=== PATIENT | female | born 1935 | race Caucasian/White ===

== ENCOUNTER → 2016-08-10 10:19 | Outpatient (CLI) | payer MEDICARE, BC ==
[2014-12-05 09:45] VITALS: BMI 30.6
[~2016-08-10 10:19] MED LIST: ALENDRONATE SOD70 MG PO; ASPIRIN325 MG PO; CEFTIN500 MG PO; COZAAR50 MG PO; CYCLOBENZAPRINE10 MG PO; ESGIC TABLET1 TAB PO; FISH OIL 1,0001 CA1 PO; INDERAL LA80 MG PO; MELATONIN5 MG PO; NORVASC5 MG PO; OYST-CAL-5001 TAB PO; PRINIVIL20 MG PO; PROPRANOLOL HCL80 MG PO; PROTONIX40 MG PO; ZESTRIL20 MG PO; ZETIA10 MG PO; ZOCOR40 MG PO
== END | disposition home or self-care (01) ==
LOC: D.MAMMO 10:19
DX: Z12.31 Encounter for screening mammogram for malignant neoplasm of breast (principal)

== ENCOUNTER 2016-08-11 13:51 | Inpatient (IN) | payer MEDICARE, BC ==
[~2016-08-11] VITALS: Ht 162.6 cm; Wt 80.0 kg
--- NOTE | ~2016-08-11 | HEMODYNAMI ---
PATIENT:RICK CHAN MEDICAL RECORD: [id number] : 31 LOCATION:[facility] D.6 ADMISSION DATE: 08/11/16 Generatedon:08/12/201615:53 Patient name: RICK CHAN Patient #: [id number] SSN: D OB: 1935 Date of study: 08/12/2016 Page: Of Hemodynamic Procedure Report Patient Data Patient Demographics Procedure consent was obtained First Name: RICK Gender: Female Last Name: ROCIO : 1935 Middle Initial: M Age: 80 year(s) Patient #: [id number] Race: Unknown Additional ID: [id number] Contact details Address: [address] [place] [address] State: [place] City: [facility] Zip code: [address] Past Medical History Allergies Allergen Reaction Date Comments Reported Iodine 08/12/2016 Sulfa drugs 08/12/2016 Betadine 08/12/2016 Other allergy 08/12/2016 Adhesives, Doxycycline, Chlorhexidine, Hydrocodone Admission Admission Data Admission Date: 08/11/2016 Admission Time: 13:51 Room #: [id number].2116 Height (in.): 64 BSA: 1.85 (m2) Height (cm.): 162.56 BMI: 30.27 (kg/m2) Weight (lbs.): 176.37 Weight (kg.): 80 Lab Results Lab Result Date: 08/12/2016 Lab Result Time: 0:00 Biochemistry Name Units Result Min Max BUN mg/dl 18 --(---*)-- 7 18 Creatinine mg/dl 1.2 --(---*)-- 0.6 1.3 CBC Name Units Result Min Max Hemoglobin g/dl 14.1 --(*---)-- 13.5 17.5 Procedure Procedure Types Cath Procedure Diagnostic Procedure [facility] w/Coronaries PCI Procedure Coronary Stent Initial Miscellaneous Procedures Moderate Sedation up to 15 minutes Procedure Description Procedure Date Procedure Date: 08/12/2016 Procedure Start Time: 15:28 Procedure End Time: 15:51 Procedure Staff Name Function Reagan Mcneil RT Scrub Jakub Gamez RT Monitor Jovany Hickey MD Performing Physician Maryjo Torres RN Nurse Procedure Data Cath Procedure Fluoroscopy Diagnostic fluoroscopy Total fluoroscopy Time: 5.3 time: 5.3 min min Diagnostic fluoroscopy Total fluoroscopy dose: 611 dose: 611 mGy mGy Contrast Material Contrast Material Type Amount (ml) Isovue 300 83 Entry Location Entry Primary Successful Side Size Upsize Upsize Entry Closure Succes sful Closure Location (Fr) 1 (Fr) 2 (Fr) Remarks Device Remarks Femoral Right 5 Fr 6 Fr Exoseal artery Short Estimated blood loss: 10 ml Diagnostic catheters Device Type Used For End Catheter Placement Cordis 5Fr Pigtail Procedure Catheter (MP) Cordis 5Fr JL 4.0 Procedure Catheter (MP) Cordis 5Fr 3DRC Catheter Procedure (MP) Procedure Complications No complications Procedure Medications Medication Administration Route Dosage Heparin Flush Bag added to field 2 bags (1000units/500ml NS) Lidocaine 2% added to field 20 Oxygen NC 2 l/min Versed I.V. 1 mg Fentanyl I.V. 50 mcg Versed I.V. 1 mg Fentanyl I.V. 50 mcg Fentanyl I.V. 50 mcg Heparin Bolus I.V. 4000 units Plavix P.O. 75 mg Hemodynamics Rest BSA: 1.85 (m2) HGB: 14.1 (g/dl) O2 Consumption: Estimated: 166.56 (ml/min) O2 Co nsumption indexed: Estimated:90.03 (ml/min/m) Heart Rate: 71 (bpm) Pressure Samples Time Site Value (mmHg) Purpose Heart Use Rate(bpm) 15:30 AO 127/60(87) Snapshot 70 Snapshots Pre Cath Intra NCS Post Cath Vital Signs Time Heart Resp SPO2 etCO2 [id number] NIBP (mmHg) Rhythm Pain Sedation Rate (ipm) (%) (mmHg) (mmHg) Status Level (bpm) 15:06:39 69 21 97 0 0 Measuring NSR 0 (11) 10(A) , No pain 15:07:14 69 20 96 0 0 163/82(124) NSR 0 (11) 10(A) , No pain 15:11:38 69 19 94 0 0 155/74(114) NSR 0 (11) 10(A) , No pain 15:15:56 68 18 94 0 0 144/69(108) NSR 0 (11) 10(A) , No pain 15:20:18 69 17 97 0 0 131/66(98) NSR 0 (11) 10(A) , No pain 15:24:34 68 16 96 0 0 129/74(104) NSR 0 (11) 10(A) , No pain 15:28:50 70 15 96 0 0 142/70(105) NSR 0 (11) 9(A) , No pain 15:33:05 69 17 95 0 0 137/68(108) NSR 0 (11) 9(A) , No pain 15:37:21 70 16 96 0 0 139/70(98) NSR 0 (11) 9(A) , No pain 15:41:36 69 17 95 0 0 133/65(105) NSR 0 (11) 9(A) , No pain 15:45:53 73 17 96 0 0 145/75(116) NSR 0 (11) 10(A) , No pain 15:50:11 72 16 96 0 0 158/83(130) NSR 0 (11) 10(A) , No pain Medications Time Medication Route Dose Verified Delivered Reason Notes Effectiveness by by 15:06:37 Oxygen NC 2 Jovany Maryjo Per physician l/min Edelmira Torres RN 15:08:22 Heparin Flush added 2 Jovany Jovany used for Bag to bags Edelmira Hickey MD procedure (1000units/500ml field NS) 15:08:32 Lidocaine 2% added 20ml Jovany Jovany used for to vial Edelmira Hickey MD procedure field 15:25:41 Versed I.V. 1 mg Jovany Maryjo for sedation Edelmira Torres RN 15:25:48 Fentanyl I.V. 50 Jovany Maryjo for sedation mcg Edelmira Torres RN 15:27:48 Versed I.V. 1 mg Jovany Maryjo for sedation Edelmira Torres RN 15:27:56 Fentanyl I.V. 50 Jovany Maryjo for sedation mcg Edelmira Torres RN 15:30:01 Fentanyl I.V. 50 Jovany Maryjo for sedation mcg Edelmira Torres RN 15:34:24 Heparin Bolus I.V. 4000 Ojvany Maryjo for dose units Edelmira Torres RN anticoagulation verified [facility] dr hickey 15:46:10 Plavix P.O. 75 mg Jovany Sibley for Edelmira Torres RN antiplatelet therapy Procedure Log Time Note 14:35:19 Reagan Mcneil RT(R) (CV) sent for patient. Start room use. 14:42:29 Time tracking: Regular hours 14:42:34 Plan of Care:Hemodynamics will remain stable., Cardiac rhythm will remain stable., Comfort level will be maintained., Respiratory function will remain adequate., Patient/ family verbilizes understanding of procedure., Procedure tolerated without complication., Recovers from procedure without complications.. 14:44:12 Patient Height : 64 cm 14:44:18 Patient Weight : 176.37 kg 14:44:43 Lab Result : Hemoglobin 14.1 g/dl 14:44:43 Lab Result : Creatinine 1.2 mg/dl 14:44:43 Lab Result : BUN 18 mg/dl 14:44:53 H&P Date Dictated: 08/11/2016 Within 30 days and on chart.. 14:45:27 Is the patient allergic to Iodine/contrast media? Yes. 14:45:28 Was the patient premedicated? Yes 14:45:29 Is patient on blood thinner?Yes 14:45:32 ACC The patient was administered the following blood thiners within the last 24 hours: ACCPlavix 14:45:40 Lab results completed and on chart. 14:55:31 Patient received from PCU to CCL 1 Alert and oriented. Tansferred to table in Supine position. 14:55:32 Warm blankets applied, and alanna hugger turned on for patient comfort. 14:55:33 Correct patient and procedure confirmed by team. 14:55:34 ECG and BP/O2 sat monitors applied to patient. 14:55:34 Signed procedure consent form obtained from patient. 15:04:50 Vital chart was started 15:06:37 Oxygen 2 l/min NC was administered by Maryjo Torres RN; Per physician; 15:07:02 Baseline sample Acquired. 15:07:06 Rhythm: sinus rhythm 15:07:16 Full Disclosure recording started 15:07:18 Pre-op teaching completed and patient verbalized understanding. 15:07:18 Pre-procedure instructions explained to patient. 15:07:20 Family in waiting room. 15:07:21 Patient NPO since Midnight. 15:07:24 Patient diabetic? No. 15:07:26 Patient not . Patient is over age 55. 15:07:28 Previous problem with sedation/anesthesia? No ? 15:07:29 Snore? Yes 15:07:31 Sleep apnea? Yes 15:07:32 Deviated septum? No 15:07:33 Sticks out tongue? Yes 15:07:33 Opens mouth fully? Yes 15:07:35 Airway obstruction? No ? 15:07:37 Dentures? No ? 15:07:40 Pre procedure: right dorsailis pedis pulse 1+ Palpable, but thready & weak; easily obliterated 15:07:42 Patient pain scale 0/10 ?. 15:07:49 IV patent on arrival in left forearm with 0.9% NaCl at [facility]. 15:07:54 Right groin area was prepped with chlora-prep and draped in sterile fashion 15:07:56 Sharps counted by scrub and verified by R.N. 15:07:56 Alarms reviewed by R. N. 15:08:02 Use device set Femoral Dx 15:08:03 Tegaderm 4 x 4 opened to sterile field. 15:08:04 Acist Hand Control opened to sterile field. 15:08:05 Acist Manifold opened to sterile field. 15:08:06 Bag Decanter opened to sterile field. 15:08:06 Acist Syringe opened to sterile field. 15:08:07 St Rogelio 260cm J .035 wire opened to sterile field. 15:08:07 Terumo 5Fr Peak Sheath opened to sterile field. 15:08:07 Medline Cath Pack opened to sterile field. 15:08:09 Diagnostic Infinity 5Fr Multipack catheter opened to sterile field. 15:08:22 Heparin Flush Bag (1000units/500ml NS) 2 bags added to field was administered by Jovany Hickey MD; used for procedure; 15:08:32 Lidocaine 2% 20ml vial added to field was administered by Jovany Hickey MD; used for procedure; 15:15:13 Patient allergic to Iodine 15:15:25 Patient allergic to Sulfa drugs 15:15:30 Patient allergic to Betadine 15:16:23 Patient allergic to Other allergyAdhesives, Doxycycline, Chlorhexidine, Hydrocodone 15::43 Zero performed for pressure channel P1 15::33 Final Timeout: patient, procedure, and site verified with staff and physician. All members of the team are in agreement. ::33 --------ALL STOP TIME OUT------ 15::36 Right groin site verified by team. 15::38 Physical assessment completed. ASA score P 2 - A patient with mild systemic disease as per Jovany Hickey MD. 15:: Versed 1 mg I.V. was administered by Maryjo Torres RN; for sedation; :: Sedation plan: IV Moderate Sedation Versed, Fentanyl 15::48 Fentanyl 50 mcg I.V. was administered by Maryjo Torres RN; for sedation; ::48 Versed 1 mg I.V. was administered by Maryjo Torres RN; for sedation; 15::56 Fentanyl 50 mcg I.V. was administered by Maryjo Torres RN; for sedation; 15:28:18 Procedure started. 15:28:22 Local anesthetic to right femoral artery with Lidocaine 2% by Jovany Hickey MD.INITIAL ACCESS ONLY 15:29:03 A 5 Fr sheath was inserted into the Right Femoral artery 15:29:09 A Cordis 5Fr Pigtail Catheter (MP) was advanced over the wire and used for Procedure. 15:29:34 LV angiography performed. 15:29:37 LV gram done using LI 15::42 EF : 55 % 15::45 Injector settings: Ml/sec: 10, Volume: 20, 15:29:47 Catheter removed. 15:29:52 A Cordis 5Fr JL 4.0 Catheter (MP) was advanced over the wire and used for Procedure. 15:30:01 Fentanyl 50 mcg I.V. was administered by Maryjo Torres RN; for sedation; 15:30:29 LCA angiography performed. 15:31:12 Catheter removed. 15:31:17 A Cordis 5Fr 3DRC Catheter (MP) was advanced over the wire and used for Procedure. 15:32:16 RCA angiography performed. 15:32:17 Catheter removed. 15:32:51 Smart Surgical BasixCompak Inflation Kit opened to sterile field. 15:32:51 Reilly Whisper J 300cm 0.014 guide wire opened to sterile field. 15:32:51 Terumo 6Fr Peak Sheath opened to sterile field. 15:32:52 Medtronic Launcher 6Fr HS I guide catheter opened to sterile field. 15:34:21 Sheath upsized to a 6 Fr Short. 15:34:24 Heparin Bolus 4000 units I.V. was administered by Maryjo Torres RN; for anticoagulation; dose verified wtih dr hickey 15:34:36 ACC PCI Site: pRCA has 75% stenosis. 15:35:42 6 Fr HS 1 guide catheter was inserted over the wire 15:35:55 Whisper wire advanced. 15:36:28 Wire advanced across lesion. 15:37:10 The Biofreedom 3.5 x 28 stent (No Cost Implant) was advanced then removed because of failure to cross lesion 15:38:25 Wire removed. 15:38:36 Grannis [employer] Choice PT Extra Support J 300cm .014 gu opened to sterile field. 15:39:02 Choice PT XS wire advanced. 15:39:06 Wire advanced across lesion. 15:39:08 Inflation number: 1 A Grannis Sci Carlisle 3.5 X 20 balloon was prepped and advanced across the Prox RCA, then inflated to 13 MAUREEN for 0:10 (min:sec). 15:39:46 Multiple inflations made at 13 Atms. 15:40:53 Balloon removed over the wire. 15:41:45 Inflation Number: 2 A Biofreedom 3.5 x 28 stent (No Cost Implant) was prepped and advanced across the Prox RCA. The stent was deployed at 13 MAUREEN for 0:10 (min:sec). 15:42:16 Inflation number: 3 The stent balloon was then re-inflated across the Prox RCA to 17 MAUREEN for 0:10 (min:sec). 15:42:41 ACC Post-intervention CHUCK Flow is 3. 15:42:42 Stent catheter was removed intact over wire. 15:42:43 Guide catheter removed. 15:42:43 Wire removed. 15:42:50 Cordis 6Fr Exoseal opened to sterile field. 15:43:24 Sheath removed intact; hemostasis achieved with Exoseal to the Right Femoral artery. 15:43:28 Procedure ended.(Physican Out) 15:43:57 Fluoroscopy time 05.30 minutes. 15:44:01 Fluoroscopy dose: 611 mGy 15:44:01 Flurop Dose total: 611 15:44:06 Contrast amount:Isovue 300 83ml. 15:44:07 Sharps counted by scrub and verified by R.N. 15:44:09 Insertion/operative site no bleeding no hematoma. 15:44:11 Post-op/insertion site Right Femoral artery dressed using a 4 x 4 and Tegaderm. 15:44:13 Post Procedure Pulses reassessed and unchanged 15:44:22 Post-procedure physical assessment completed. ASA score P 2 - A patient with mild systemic disease as per Jovany Hickey MD. 15:44:25 Post procedure rhythm: unchanged. 15:44:28 Estimated blood loss: 10 ml 15:44:31 Post procedure instruction explained to patient.Patient verbalizes understanding. 15:44:32 Patient needs reinforcement of post procedure teaching. 15:45:01 Procedure type changed to Cath procedure, Diagnostic procedure, LHC, LHC w/Coronaries, PCI procedure, Coronary Stent Initial, Miscellaneous Procedures, Moderate Sedation up to 15 minutes 15:45:08 Procedure Complication : No complications 15:45:41 IV Extension Set opened to sterile field. 15:46:02 Procedure and supply charges have been captured, reviewed, submitted and are correct. 15:46:10 Plavix 75 mg P.O. was administered by Maryjo Torres RN; for antiplatelet therapy; 15:51:02 See physician's report for complete and final results. 15:51:02 Vital chart was stopped 15:51:05 Report given to PCU. 15:51:07 Patient transfered to PCU with Bed. 15:51:09 Full Disclosure recording stopped 15:51:09 Procedure ended. 15:51:14 End room use (Document Last) Intervention Summary Intervention Notes Time ActionType Lesion and Equipment Action# Pressure Duration Attributes Used 15:37:10 Discard Biofreedom Stent 3.5 x 28 stent (No Cost Implant) 15:39:08 Inflate Prox RCA Grannis Sci 1 13 00:10 balloon Carlisle 3.5 X 20 balloon 15:41:[address] stent Prox RCA Biofreedom 2 13 00:10 3.5 x 28 stent (No Cost Implant) 15:42:16 Reinflate Prox RCA Biofreedom 3 17 00:10 stent 3.5 x 28 balloon stent (No Cost Implant) Device Usage Item Name Manufacture Quantity Catalog Number Hospital Part Current Mini [facility] Lot# / Charge Number Stock Stock Serial# Code Tegaderm 4 3M 1 [id number] [id number] 5 x 4 Acist Hand Acist 1 30823 168085 725435 632366 5 Control Medical Systems Inc Acist Acist 1 37856 279939 516581 777556 5 Manifold Medical Systems Inc Acist Acist 1 08342 692777 751607 985753 20 Syringe Medical Systems Inc Bag Microtek 1 2002S 0875062 97110 610336 5 Drinks4-you Inc. Medline Cardinal 1 [id number] 475682 99935 117569 5 Cath Pack Health Terumo 5Fr Terumo 1 [id number] 882060 462074 914116 [address] Rogel[address] St Rogelio 1 166038 670967 154720 929876 30 260cm J .035 wire Diagnostic Cardinal 1 [id number] 705450 09584 869253 30 Infinity Health 5Fr Multipack catheter Cordis 5Fr Cardinal 1 [id number] 5 Pigtail Health Catheter (MP) Cordis 5Fr Cardinal 1 357019 5 JL 4.0 Health Catheter (MP) Cordis 5Fr Cardinal 1 722251 5 3DRC Health Catheter (MP) Terumo 6Fr Terumo 1 [id number] 659715 988121 985321 40 Peak Sheath Reilly Reilly 1 [id number] 930463 415639 020776 5 Whisper J Vascular 300cm 0.014 guide wire Merit Merit 1 [id number] 547802 010904 841146 15 BasixCompak Medical Inflation Kit Medtronic Medtronic 1 [id number] 240171 39934 649680 1 Launcher 6Fr HS I guide catheter Biofreedom Biosensors 1 [id number] 553481 294297 5 [id number] 3.5 x 28 [place] SA stent (No Cost Implant) Grannis Sci Grannis 1 [id number] 24080331 529006 5 Choice PT Scientific Extra Support J 300cm .014 gu Grannis Sci Grannis 1 [id number] 039719 888344 989158 1 [id number] Answer[employer].com 3.5 X 20 balloon Cordis 6Fr Cardinal 1 EX600 365192 781880 760185 10 [facility] [address]-96 850248 26957 905523 5 Extension Set Signature Audit [place] Stage Time Signature Unsigned Intra-Procedure 08/12/2016 Jakub Gamez RT(R) 3:51:25 PM RT(R) 08/12/2016 3:52:44 PM Intra-Procedure 08/12/2016 Jakub Gamez 3:53:30 PM RT(R) Signatures Monitor : Jakub Gamez RT Signature : Date : Time : [address] [address]
[~2016-08-11 13:51] MED LIST changes: -COZAAR50 MG PO; -FISH OIL 1,0001 CA1 PO; -MELATONIN5 MG PO; -OYST-CAL-5001 TAB PO; -PROTONIX40 MG PO
--- NOTE | 2016-08-11 14:16 | NUR ---
TRANSFER FROM ADMISSIONS BY W/C. OREINTED ROOM. CALL LIGHT IN REACH. WILL CONT. PLAN OF CARE.
[2016-08-11] MEDS ORDERED: ALENDRONATE SOD70 MG PO (14:32)
[2016-08-11 14:33] LABS: BASOPHILS 0.5 % (0-2); EOSINOPHILS 1.5 % (0-7); HEMATOCRIT 43.1 % (36.0-48.0); HEMOGLOBIN 14.1 g/dL (12-16); IMMATURE GRANULOCYTES 0.2 % (0-5); LYMPHOCYTES 16.1 % (15-50); MCH 31.3 pg (26.0-34.0); MCHC 32.7 g/dL (31.0-37.0); MCV 95.8 fL (80.0-100.0); MEAN PLATELET VOLUME 9.5 fL (7.4-10.4); NEUTROPHILS 67.7 % (40-80); WBC 6.7 10x3/uL (4.8-10.8)
[2016-08-11] MEDS ORDERED: PROPRANOLOL HCL80 MG PO (14:33)
[2016-08-11 14:35] LABS: PLATELET COUNT 258 10x3/uL (130-400)
[2016-08-11] MEDS ORDERED: PROTONIX40 MG PO (14:35)
[2016-08-11] MEDS ORDERED: COZAAR50 MG PO (14:37)
[2016-08-11] MEDS ORDERED: MELATONIN5 MG PO (14:41)
[2016-08-11] MEDS ORDERED: FISH OIL 1,0001 CA1 PO (14:42)
[2016-08-11] MEDS ORDERED: OYST-CAL-5001 TAB PO (14:42)
[2016-08-11 14:46] VITALS: BP 182/77; Ht 162.6 cm; Wt 80.0 kg
[2016-08-11 15:20] LABS: ALBUMIN 4.2 g/dL (3.4-5.0); ALKALINE PHOSPHATASE 83 U/L (46-116); ALT (SGPT) 26 U/L (10-68); CALC OSMOLALITY 284 mosm/kg (275-300); CARBON DIOXIDE 30.6 mmol/L (21.0-32.0); CHLORIDE - SERUM 105 mmol/L (98-107); CKMB 1.1 U/L (0.0-3.6); CREATINE KINASE 53 UL (21-215); CREATININE - SERUM 1.2 mg/dL (0.6-1.3); GLUCOSE 102 mg/dL (74-106); POTASSIUM - SERUM 4.5 mmol/L (3.5-5.1); PROTEIN - SERUM 7.1 g/dL (6.4-8.2); SODIUM 142 mmol/L (136-145); TROPONIN-I < 0.017 ng/mL (0.000-0.060); UREA NITROGEN 18 mg/dL (7-18); eGFR NON AFRICAN AMERICAN 45 mL/min (90-120)
--- NOTE | 2016-08-11 15:30 | NUR ---
IV STARTED TO LFA WITH 22 GAUGE CATH AND FLUSHED WITH NS. LINE IS PATENT.
--- NOTE | 2016-08-11 16:12 | NUR ---
EKG COMPLETED. CONSENTS SIGNED FOR [facility]. WILL CONT. PLAN OF CARE.
--- NOTE | 2016-08-11 20:12 | NUR ---
RESUMED CARE OF PT, LYING IN BED RESPIRATIONS EVEN AND UNLABORED ON ROOM AIR. 66 SR ON TELEMETRY. LEFT FOREARM SALINE LOCKED. NO NEEDS VOICED AT THIS TIME. CALL LIGHT IN REACH. WILL CONTINUE TO MONITOR.
[2016-08-11 20:24] VITALS: BP 130/67
[2016-08-11 22:36] LABS: CKMB 0.8 U/L (0.0-3.6); CREATINE KINASE 47 UL (21-215)
[2016-08-11 22:38] LABS: TROPONIN-I < 0.017 ng/mL (0.000-0.060)
[2016-08-12 01:28] VITALS: BP 141/62
[2016-08-12 04:34] VITALS: BP 164/80
[2016-08-12 07:15] LABS: CKMB 0.7 U/L (0.0-3.6); CREATINE KINASE 50 UL (21-215); TROPONIN-I < 0.017 ng/mL (0.000-0.060)
[2016-08-12 08:00] VITALS: BP 140/71
[2016-08-12 12:00] VITALS: BP 143/69
--- NOTE | 2016-08-12 14:45 | NUR ---
PRE-OPS GIVEN. TO AUTOMOTIVE SERVICE ADVISOR BY BED.
--- NOTE | 2016-08-12 16:09 | NUR ---
BACK FROM ENTERPRISE [employer] ARCHITECT. VS WNL. RIGHT GROIN STABLE WITHOUT BLEEDING OR HEMATOMA NOTED.
--- NOTE | 2016-08-12 17:36 | NUR ---
Patient returned from cardiac cath at 1600. CM will visit when patient is more alert regarding discharge planning needs.
[2016-08-12 19:41] VITALS: BP 96/54
--- NOTE | 2016-08-12 19:47 | NUR ---
INITIAL ASSESSMENT COMPLETED, VSS, AFEBRILE. LEFT FOREARM SL'ED. RIGHT GROIN CDI, NO BLEEDING OR HEMATOMA NOTED. ATTEMPTED TO GIVE PT DISCHARGE INSTRUCTIONS, PT STATES "DR CUNHA TOLD ME I COULD STAY THE NIGHT". CALL TO DR CUNHA AT THIS TIME, RETURNS CALL. STATES THE PT MAY STAY TONIGHT. PT AND HER SPOUSE UPDATED ON POC.
--- NOTE | 2016-08-12 23:44 | NUR ---
PT RESTING WELL WITHOUT C/O OR DISTRESS NOTED. NO CHANGES NOTED IN ASSESSMENT. CALL LIGHT WITHIN REACH. WILL CONT TO MONITOR.
[2016-08-13 00:59] VITALS: BP 116/54
--- NOTE | 2016-08-13 07:19 | NUR ---
ASSESSMENT COMPLETED. LEFT HAND SL . TELEMERTY SHOWS SR. RIGHT GROIN SOFT WITH DRSG DRY AND INTACT. TO BE DISCHARGED TODAY
[2016-08-13 08:40] VITALS: BP 118/85
[2016-08-13 08:56] VITALS: BP 118/85
--- NOTE | 2016-08-13 09:20 | HP ---
PATIENT: RICK CHAN MEDICAL RECORD: [id number] ACCOUNT: [id number] LOCATION:[address] : 31 ADMISSION DATE: 08/11/16 HISTORY AND PHYSICAL EXAMINATION DATE OF ADMISSION: 08/11/2016 CHIEF COMPLAINT: Substernal chest pain. HISTORY OF PRESENT ILLNESS: The patient is an 80-year-old female who states that over the past week, she has had cough. She has had congestion. She did see Dr. Aquino last week with cough and congestion and has improved, but she has had some tightness in her chest. The patient states that anytime she is ambulating on even ground or any incline she develops tightness in her chest. She has had no nausea, no vomiting, but also states that this occasionally occurs at rest. The patient has had a history of having 2 prior stents placed. She had one in 2005 and [place] [address] Alcaraz. PAST MEDICAL AND SURGICAL HISTORY: She has had a history of hypertension and hyperlipidemia. She had hysterectomy and cholecystectomy. She has had a cardiac perfusion tamponade times 2. She has had a hysterectomy, history of varicose veins. MEDICATIONS: Include alendronate 70 mg once a day, aspirin 325 mg one p.o. daily, fish oil 2000 mg once a day, losartan 100 mg daily, Os-Yoav 500 mg plus vitamin D3 500 mg 1 tablet twice daily, Protonix 40 mg once a day, propranolol 80 mg b.i.d., simvastatin 40 mg once a day and Zetia 10 mg once a day. ALLERGIES: BETADINE, CHLORHEXIDINE, DOXYCYCLINE, HYDROCODONE AND IODINE. FAMILY HISTORY: Father of malignant lung cancer as well as ulcer. Mother had hypertension, also had esophageal cancer. Brother has had an open heart surgery. SOCIAL HISTORY: The patient has not been a smoker and not a drinker. 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 She is currently . REVIEW OF SYSTEMS: CONSTITUTIONAL: She denies any headaches, seizures, or syncope. Denies change in visual or auditory acuity. PULMONARY: She denies any shortness of breath. CARDIOVASCULAR: The patient has reported having problems with substernal chest pain, tightness in her chest. She has had no tachycardia. GASTROINTESTINAL: No chronic nausea, vomiting, melena or hematochezia. GENITOURINARY: No urgency, frequency, or dysuria. PHYSICAL EXAMINATION: VITAL SIGNS: Her blood pressure was elevated at 180/86, her pulse is 60, respirations 14 and temperature is 98. GENERAL: She is alert. She is oriented times 3. She is accompanied by her . HEENT: Unremarkable. NECK: Supple. There is no adenopathy. No thyromegaly. HEART: Has a regular rate and rhythm without murmurs, gallops or rubs. LUNGS: Clear. HISTORY AND PHYSICAL [id number] RICK CHAN ABDOMEN: Soft, bowel sounds are positive. EXTREMITIES: Lower extremities had no edema. She does have some anterior chest wall tenderness, but states that this is not the type of pain she has been experiencing. LABORATORY DATA: She had an EKG showing sinus rhythm, rate is approximately 78. No ST-T wave changes. ASSESSMENT: Substernal chest pain, prior history of cardiac stenting times 2, hyperlipidemia and hypertension. PLAN: It is felt the patient should be admitted. Cardiology consultation will be obtained for possible cardiac catheterization. TRANSINT:[id number] Voice Confirmation ID: [id number] DOCUMENT ID: [id number] EMANUEL VERDE MD at 0920 CC: [id number] DICTATION DATE: 08/11/16 1327 POST OFFICE MANAGER: 08/11/16 1513 ADM IN [place] [id number] [place] [address]
--- NOTE | 2016-08-13 10:16 | NUR ---
PT DISCHARGED. IV DCD WITH TIP INTACT. RX FOR PLAVIX GIVEN TO PT. TO PRIVATE CAR PER WHEELCHAIR
--- NOTE | 2016-08-15 10:11 | CN ---
PATIENT NAME:RICK CHAN MEDICAL RECORD: [id number] : 31 LOCATION:[facility] D.2116 ADMIT DATE: 08/11/16 ACCOUNT: [id number] CONSULTING PHYSICIAN: NAVIN CUNHA MD REFERRING PHYSICIAN: EMANUEL VERDE MD DATE OF CONSULTATION: 08/11/2016 Cardiology Consultation ADMITTING DIAGNOSES: 1. Angina. 2. Coronary artery disease. 3. Previous percutaneous transluminal coronary angioplasty stent 2 vessels in 2006. 4. Hypertension. 5. Hyperlipidemia. HISTORY OF PRESENT ILLNESS: Mrs. Chan has not had cardiac intervention greater than 10 years. She presents with increasing anginal symptomatology just like that of her old angina, chest pressure that has been coming on her with any minimal exertion, now she is having episodes of rest pain. Her EKG is with no acute ST-T abnormalities. PHYSICAL EXAMINATION: GENERAL APPEARANCE: Well-nourished, well-developed, appears stated age. Level of distress, comfortable. PSYCHIATRIC: Mental status, alert, normal affect. Orientation, oriented to time, place and person. EYES: Lids and conjunctiva, noninjected. No discharge, no pallor. ENT: Lips, teeth, gums, normal dentition. Oropharynx, no cyanosis, no pallor. NECK: Carotid arteries, bilateral normal upstroke, no bruits, no thrills. JUGULAR VEINS: No jugular venous pressure or distention. CERVICAL LYMPH NODES: Nontender, nonenlarged. THYROID: Not enlarged. Nontender. No nodules. LUNGS: Respiratory effort, unlabored. CHEST: Normal curvature. No thoracic deformity. No chest wall tenderness. Percussion, resonant. Auscultation, clear. No wheezes, no rales, no rhonchi. CARDIOVASCULAR: Precordial exam, nondisplaced. No heaves or pericardial thrills. Rate and rhythm, regular. Heart sounds, normal S1, normal S2. No S3, no gallop, no rub. Systolic murmur, not heard. Diastolic murmur, not heard. EXTREMITIES: No cyanosis, no edema. Peripheral pulses, full and equal in all extremities, except as noted. No bruits appreciated. ABDOMEN: Soft, nondistended. Normal aorta. No bruit. Nontender. No masses. Liver, nontender, no hepatomegaly. Spleen, nontender, no splenomegaly. MUSCULOSKELETAL: No joint tenderness. No joint swelling. No erythema. NEUROLOGICAL: Normal gait, normal strength, normal tone. SKIN: Warm and dry. REVIEW OF SYSTEMS: The patient reports easy bruising but reports no swollen glands. The patient reports no fever, no night sweats, no significant weight gain, no significant weight loss. No significant exercise tolerance. The patient reports no dry eyes, no irritation, no vision change. Patient reports no difficulty hearing and no ear pain. Patient reports no frequent nose bleeds or nose and sinus problems. Patient reports on arm pain on exertion. No shortness of breath while lying down. No history of heart murmur. Patient CONSULT REPORT [id number] RICK CHAN reports no cough, no wheezing or coughing up blood. Patient reports no abdominal pain, no vomiting. Normal appetite. No diarrhea and not vomiting blood. No nausea and no constipation. Patient reports no incontinence. No difficulty urinating. No hematuria. No increased frequency. Patient reports no muscle aches. No weakness, no arthralgias, no back pain. No swelling of the extremities. Patient reports no abnormal mole, no jaundice, no rashes. Reports no loss of consciousness. No weakness and no numbness. No seizures, dizziness, or headaches. The patient reports no depression, no sleep disturbance, feeling safe in a relationship and no alcohol abuse. Patient reports on fatigue. Reports no runny nose or sinus pressure. No itching, no hives, and no frequent sneezing. OVERALL IMPRESSION: Accelerated angina in an unstable fashion. We will proceed with coronary angiography. Further care depends upon findings of the angiography. TRANSINT:[id number] Voice Confirmation ID: [id number] DOCUMENT ID: [id number] NAVIN CUNHA MD at 1011 CC: [id number] DICTATION DATE: 08/11/16 1507 INSURANCE EXAMINING CLERK: 08/12/16 0209 DIS IN 08/13/16 [place] [id number] [place] [id number]
--- NOTE | 2016-08-15 10:11 | OP ---
PATIENT NAME: RICK CHAN MEDICAL RECORD: [id number] :31 LOCATION:D.M2 D.2116 ADMISSION DATE:08/11/16 SURGEON: NAVIN CUNHA MD DATE OF OPERATION: 08/12/2016 PROCEDURES: 1. PTCA stent RCA. 2. Left heart catheterization. 3. Selective coronary angiography. 4. Left ventriculogram. INDICATION: Unstable angina. PROCEDURE IN DETAIL: After informed consent was obtained and after detailed explanation of risks, benefits as well as alternative therapies, the patient elected to proceed with angiogram and angioplasty. The right femoral area was prepped and draped in normal sterile fashion. The right femoral artery was cannulated via modified Seldinger technique with placement of 6-Irish sheath. All catheters exchanged through this sheath. FINDINGS: The left ventriculogram was performed in the standard 30-degree LI view reveals good cardiac wall motion throughout all segments. Overall ejection fraction is 60%. SELECTIVE CORONARY ANGIOGRAPHY: 1. Left main showed no significant angiographic disease. 2. Left anterior descending has a previously placed stent. This is widely patent with no significant restenosis. No disease elsewise throughout the LAD or its branches. 3. Left circumflex has moderate irregularities, but no flow-limiting stenosis. 4. Right coronary has 75% stenosis proximally. There is a previously placed stent in the mid distal vessel. This is widely patent. No disease elsewhere throughout the RCA or its branches. PTCA STENT OF THE RCA: The stent used was a 3.0 x 28 mm Bio[employer] taken to 17 atmospheres. This was a 25-mm lesion and a 3.5 vessel, CHUCK 3 flow before and after the intervention. Result was 0% residual stenosis after the intervention. OVERALL IMPRESSION: Successful percutaneous transluminal coronary angioplasty stent of the right coronary artery going from 75% initial stenosis to 0% residual. TRANSINT:[id number] Voice Confirmation ID: [id number] DOCUMENT ID: [id number] NAVIN CUNHA MD at 1011 CC: [id number] DICTATION DATE: 08/12/16 1545 MARINA DRY DOCK MANAGER: 08/13/16 0058 DIS IN 08/13/16 [place] [address]
--- NOTE | 2016-08-15 10:11 | DS ---
PATIENT:RICK CHAN :31 MEDICAL RECORD: [id number] DISCHARGE SUMMARY ADMISSION DATE: 08/11/16 DISCHARGE DATE: 08/13/16 DATE OF SERVICE: 08/12/2016 DIAGNOSES: 1. Angina. 2. Coronary artery disease. 3. Percutaneous transluminal coronary angioplasty stent right coronary artery this admission. 4. Hypertension. 5. Hyperlipidemia. HOSPITAL COURSE: Mrs. Chan presents with unstable anginal symptomatology, underwent cardiac catheterization revealing single vessel disease to the RCA, underwent successful PTCA stent of the RCA, was discharged home with the addition of aspirin and Plavix to her medical regimen. She will follow up with [facility] in 1 month. TRANSINT:[id number] Voice Confirmation ID: [id number] DOCUMENT ID: [id number] NAVIN CUNHA MD at 1011 CC: [id number] DICTATION DATE: 08/12/16 161 CARDIOPULMONARY TECHNICIAN: 08/13/16 1102 DIS IN 08/13/16 [place] [id number] [place] [address]
== END 2016-08-13 10:19 | disposition home or self-care (01) | DRG 247 ==
LOC: D.SDCHOLD 13:51 → D.M2 13:51
PROVIDERS: Internal Medicine Interventional Cardiology; ADMIT Family Medicine
PROC: B2111ZZ Fluoroscopy of Multiple Coronary Arteries using Low Osmolar Contrast (ICD-10-PCS; 2016-08-12)
PROC: B2151ZZ Fluoroscopy of Left Heart using Low Osmolar Contrast (ICD-10-PCS; 2016-08-12)
PROC: 027034Z Dilation of Coronary Artery, One Artery with Drug-eluting Intraluminal Device, Percutaneous Approach (ICD-10-PCS; principal; 2016-08-12 11:45)
PROC: 4A023N7 Measurement of Cardiac Sampling and Pressure, Left Heart, Percutaneous Approach (ICD-10-PCS; 2016-08-12 11:45)
DX: I25.110 Atherosclerotic heart disease of native coronary artery with unstable angina pectoris (principal); Z95.5 Presence of coronary angioplasty implant and graft; I10 Essential (primary) hypertension; E78.5 Hyperlipidemia, unspecified; Z00.6 Encounter for examination for normal comparison and control in clinical research program

== ENCOUNTER 2017-08-21 08:00 | Outpatient (CLI) | payer MEDICARE, BC ==
[2017-07-22 10:58] VITALS: BMI 31.6
[~2017-08-21 08:00] MED LIST changes: +BAYER CHEWABLE81 MG PO; +COZAAR50 MG PO; +FISH OIL 1,0001 CA1 PO; +MELATONIN5 MG PO; +OYST-CAL-5001 TAB PO; +PLAVIX75 MG PO; +PROTONIX40 MG PO
== END 2017-08-21 09:00 | disposition home or self-care (01) ==
LOC: D.MAMMO 08:00
DX: Z12.31 Encounter for screening mammogram for malignant neoplasm of breast (principal)

== ENCOUNTER 2017-10-04 07:11 | Inpatient (IN) | payer MEDICARE, BC ==
[~2017-10-04] VITALS: Ht 162.6 cm; Wt 81.8 kg
[2017-10-04] VITALS (7 sets, daily range): BP systolic 121–193; BP diastolic 42–105; Ht 162.6 cm; Wt 81.8 kg
--- NOTE | ~2017-10-04 | HP ---
PATIENT: RICK CHAN MEDICAL RECORD: [id number] ACCOUNT: [id number] LOCATION:D.MS [facility] : 31 ADMISSION DATE: 10/04/17 HISTORY AND PHYSICAL EXAMINATION DATE OF ADMISSION: 10/04/2017 CHIEF COMPLAINT: Right hip pain. HISTORY OF PRESENT ILLNESS: The patient is an 82-year-old female who had gone out to get her paper this morning. She was starting back in her house, going two steps, fell, complained of having pain in the right hip, presented to the Emergency Room where she was found to have a right intertrochanteric fracture. PAST MEDICAL AND SURGICAL HISTORY: Significant that she has had history of hypothyroidism, hyperlipidemia. She has had hypokalemia, history of anemia, benign hypertension. She has had arteriosclerotic heart disease with bypass grafting. She has had coronary stents placed as well. She had gastroesophageal reflux, postmenopausal syndrome, osteoporosis. She has had a cholecystectomy. She had a right shoulder replacement as well as a hysterectomy. She has had bladder surgery, history of pleural effusions, history of seizure disorder, DJD of the left hip. She has had an MD in the past. ALLERGIES: BETADINE, CHLORHEXIDINE, DOXYCYCLINE, HYDROCODONE AND IODINE. MEDICATIONS: Include aspirin 81 mg once a day, Plavix 75 mg once a day, Zetia 10 mg once a day, losartan 100 mg a day, nabumetone 500 mg p.o. b.i.d., vitamin D3 1000 international units daily, Protonix 40 mg daily, propranolol 80 mg b.i.d., simvastatin 40 mg daily. FAMILY HISTORY: Father of heart disease. Mother had hypertension. Mother had esophageal cancer. SOCIAL HISTORY: The patient is . She is educated through the 12th grade. She is a retired receptionist secretary. She denies any ethanol or tobacco use or abuse. SOCIAL HISTORY: She was born in [place], [place]. She lives here with her in [place]. REVIEW OF SYSTEMS: GENERAL: She denies any headaches, seizure or syncope. She denies change in visual or auditory acuity. PULMONARY: She denies any shortness of breath, cough or congestion, history of TB, asthma, or bronchitis. CARDIOVASCULAR: She is having no chest pain, palpitation, PND, or orthopnea. GASTROINTESTINAL: No chronic nausea, vomiting, melena, or hematochezia. GENITOURINARY: No urinary frequency or dysuria. PHYSICAL EXAMINATION: VITAL SIGNS: The patient currently is afebrile. Her pulse is 75, respirations 18, her blood pressure 130/48, her O2 sat is 95% on room air. HEENT: Head is normocephalic. No lesions. Ears: TMs clear. Eyes: Pupils equal, round, reactive to light. Her extraocular movements are intact. Her nasal cavity, oral cavity, and oropharynx is clear. HISTORY AND PHYSICAL [id number] ROCIORICK M NECK: Supple. There is no adenopathy. HEART: Has a regular rate and rhythm without any murmurs, gallops or rubs. LUNGS: Clear. ABDOMEN: Soft, bowel sounds are positive. The patient does have pain in the right hip area. She has shortening with external rotation. IMAGING: She had x-ray of the hip showing acute displaced comminuted angulated intertrochanteric fracture. She had a pelvis fracture showing the same. Chest x-ray showed no cardiomegaly, no active infiltrates. She had a knee x-ray, knee x-ray was unremarkable. She had an EKG, EKG showed a normal sinus rhythm, her rate is 60. LABORATORY DATA: She had a white count of 9.2, hemoglobin 12.6, hematocrit 37.5, her platelets are 191. Sodium 142, potassium 4.3, chloride is 106, CO2 is 26.5. Her BUN is 27, creatinine is 1.1. Blood sugar is 122. INR is 1.09. ASSESSMENT: 1. Status post fall with right intertrochanteric fracture. 2. History of arteriosclerotic heart disease without any evidence of cardiac ischemia at the present time. 3. Hyperlipidemia. 4. Hypertension. 5. Osteoporosis. 6. Gastroesophageal reflux. PLAN: The patient is admitted. Orthopedic consultation will be obtained for open reduction internal fixation of the right hip. The patient will be started on morphine for pain control. Repeat CBC and BMP in a.m. TRANSINT:[id number] Voice Confirmation ID: [id number] DOCUMENT ID: [id number] EMANUEL VERDE MD at 0721 CC: [id number] DICTATION DATE: 10/04/171809 TECHNOLOGY ADOPTION MANAGER: 10/04/171917 ADM IN [facility] [address] [place] [address]
--- NOTE | ~2017-10-04 | DS ---
PATIENT:RICK CHNA :31 MEDICAL RECORD: [id number] DISCHARGE SUMMARY ADMISSION DATE: 10/04/17 DISCHARGE DATE: 10/09/17 DATE OF ADMISSION: 10/04/2017 DATE OF DISCHARGE: 10/09/2017 CONDITION ON DISCHARGE: Improved. ADMITTING DIAGNOSES: Status post fall with right intertrochanteric fracture, history of arteriosclerotic heart disease without evidence of ischemia at the present time, hyperlipidemia, hypertension, osteoporosis, gastroesophageal reflux. DISCHARGE DIAGNOSES: Displaced intertrochanteric fracture of the right hip, status post fall, hypothyroidism, hyperlipidemia, hypertension, history of arteriosclerotic heart disease, gastroesophageal reflux. HOSPITAL COURSE: This patient is an 82-year-old female who had gone out to get the paper on the morning of her admission. She had started back to her house when she started to have 2 steps, fell, complaining of having pain in her right hip. She presented to the Emergency Room where she was found to have a right intertrochanteric fracture. PHYSICAL EXAMINATION: VITAL SIGNS: She is currently afebrile. Vital signs are stable. Pulse 75, respirations 18, blood pressure 130/48, O2 saturation was 95% on room air. GENERAL: She was alert. She is oriented times 3. HEENT: Unremarkable. NECK: Supple. There is no adenopathy. HEART: Had a regular rate and rhythm without murmurs, gallops or rubs. LUNGS: Clear. LOWER EXTREMITIES: The patient did have shortening with external rotation of the right lower leg. X-ray of the hip showed an acute comminuted, angulated intertrochanteric fracture of the pelvic. She had a pelvic x-ray showing the same. LABORATORY DATA: Chest x-ray showed no cardiomegaly, no active infiltrates. She had a right knee x-ray, was unremarkable. EKG showed sinus rhythm, rate of 60. White count is 9.2, hemoglobin 12.6, hematocrit was 37.5, platelets 192. Sodium 142, potassium 4.3, chloride 106, CO2 is 26.5, BUN is 27, creatinine 1.1, blood sugar of 122. INR is 1.09. The patient was admitted. Orthopedic consultation was obtained for open reduction internal fixation. She was seen in consultation by Dr. Kenneth Raygoza. The patient was taken to the operating room on 10/05/2017 where she underwent a right comminuted intertrochanteric fracture femoral long nailing and cross locking. The patient tolerated the procedure well. She was started on orthopedic pathways, slowly began to ambulate. She had no complications postop. The patient was therefore referred for inpatient rehabilitation. She was discharged on the to inpatient rehabilitation. DISCHARGE MEDICATIONS: Include Zetia 10 mg p.o. bedtime, Zocor 40 mg p.o. every day, Inderal LA 80 mg p.o. b.i.d., Protonix 40 mg p.o. every day, Cozaar 100 mg once a day, melatonin 5 mg p.o. at bedtime p.r.n. insomnia, calcium 500 mg p.o. DISCHARGE SUMMARY REPORT [id number] RICK CHAN daily. DISCHARGE INSTRUCTIONS: The patient will continue all current medications. She will follow up with me in approximately 7-10 days after her discharge from rehab. TRANSINT:[id number] Voice Confirmation ID: [id number] DOCUMENT ID: [id number] EMANUEL VERDE MD at 0729 CC: [id number] DICTATION DATE: 10/22/17 1136 RESTAURANT WORKER: 10/23/17 0438 DIS IN 10/09/17 [place] [id number] [place] [address]
[2017-10-04 08:20] LABS: BASOPHILS 0.2 % (0-2); EOSINOPHILS 2.6 % (0-7); HEMATOCRIT 37.5 % (36.0-48.0); HEMOGLOBIN 12.6 g/dL (12-16); IMMATURE GRANULOCYTES 0.2 % (0-5); LYMPHOCYTES 6.7 % (15-50); MCH 31.3 pg (26.0-34.0); MCHC 33.6 g/dL (31.0-37.0); MCV 93.3 fL (80.0-100.0); MEAN PLATELET VOLUME 9.5 fL (7.4-10.4); MONOCYTES 8.5 % (2-11); NEUTROPHILS 81.8 % (40-80); PLATELET COUNT 191 10x3/uL (130-400); RBC 4.02 10x6/uL (4.00-5.40); RDW 13.3 % (11.5-14.5); WBC 9.2 10x3/uL (4.8-10.8)
[2017-10-04 08:39] LABS: APTT 24.5 SECONDS (22.8-39.4); INR 1.09 (0.85-1.17); PROTIME 13.7 SECONDS (11.6-15.0)
[2017-10-04 08:41] LABS: ALBUMIN 3.5 g/dL (3.4-5.0); ANION GAP 13.8 mmol/L (8-16); BILIRUBIN - TOTAL 0.94 mg/dL (0.2-1.3); CALCIUM 9.2 mg/dL (8.5-10.1); CARBON DIOXIDE 26.5 mmol/L (21.0-32.0); CREATININE - SERUM 1.2 mg/dL (0.6-1.3); POTASSIUM - SERUM 4.3 mmol/L (3.5-5.1); PROTEIN - SERUM 6.5 g/dL (6.4-8.2)
[2017-10-05] VITALS: BP 108/49
[2017-10-05 04:00] VITALS: BP 139/55
[2017-10-05 05:30] LABS: BASOPHILS 0.2 % (0-2); EOSINOPHILS 1.2 % (0-7); HEMATOCRIT 30.7 % (36.0-48.0); HEMOGLOBIN 10.2 g/dL (12-16); IMMATURE GRANULOCYTES 0.1 % (0-5); LYMPHOCYTES 11.3 % (15-50); MCH 31.8 pg (26.0-34.0); MCHC 33.2 g/dL (31.0-37.0); MONOCYTES 18.9 % (2-11); NEUTROPHILS 68.3 % (40-80); RDW 13.7 % (11.5-14.5); WBC 8.6 10x3/uL (4.8-10.8)
[2017-10-05 05:34] LABS: MCV 95.6 fL (80.0-100.0); PLATELET COUNT 150 10x3/uL (130-400); RBC 3.21 10x6/uL (4.00-5.40)
[2017-10-05 05:37] LABS: ALBUMIN 2.7 g/dL (3.4-5.0); ANION GAP 10.2 mmol/L (8-16); CALCIUM 8.4 mg/dL (8.5-10.1); CREATININE - SERUM 1.2 mg/dL (0.6-1.3); POTASSIUM - SERUM 4.2 mmol/L (3.5-5.1); PROTEIN - SERUM 5.4 g/dL (6.4-8.2)
[2017-10-05 08:24] VITALS: BP 142/52
[2017-10-05 13:25] VITALS: BP 135/69
[2017-10-05 16:54] VITALS: BP 134/45
[2017-10-05 20:00] VITALS: BP 116/48
[2017-10-06] VITALS: BP 117/41
[2017-10-06 04:00] VITALS: BP 154/48
[2017-10-06 04:56] LABS: BASOPHILS 0.2 % (0-2); EOSINOPHILS 0.3 % (0-7); HEMATOCRIT 24.9 % (36.0-48.0); IMMATURE GRANULOCYTES 0.3 % (0-5); LYMPHOCYTES 10.3 % (15-50); MCH 30.9 pg (26.0-34.0); MCHC 32.5 g/dL (31.0-37.0); MEAN PLATELET VOLUME 10.1 fL (7.4-10.4); MONOCYTES 11.3 % (2-11); NEUTROPHILS 77.6 % (40-80); PLATELET COUNT 143 10x3/uL (130-400); RBC 2.62 10x6/uL (4.00-5.40); RDW 13.5 % (11.5-14.5)
[2017-10-06 05:02] LABS: HEMOGLOBIN 8.1 g/dL (12-16); WBC 11.9 10x3/uL (4.8-10.8)
[2017-10-06 05:19] LABS: ALBUMIN 2.4 g/dL (3.4-5.0); ANION GAP 7.9 mmol/L (8-16); BILIRUBIN - TOTAL 0.73 mg/dL (0.2-1.3); CALCIUM 8.3 mg/dL (8.5-10.1); CARBON DIOXIDE 30.5 mmol/L (21.0-32.0); CREATININE - SERUM 1.3 mg/dL (0.6-1.3); POTASSIUM - SERUM 4.4 mmol/L (3.5-5.1); PROTEIN - SERUM 5.1 g/dL (6.4-8.2)
[2017-10-06 08:22] VITALS: BP 114/54
[2017-10-06 12:56] VITALS: BP 112/42
[2017-10-06 16:21] VITALS: BP 112/40
[2017-10-06 20:00] VITALS: BP 109/46
[2017-10-07] VITALS: BP 120/44
[2017-10-07 04:00] VITALS: BP 127/43
[2017-10-07 05:32] LABS: BASOPHILS 0.2 % (0-2); EOSINOPHILS 0.9 % (0-7); HEMATOCRIT 20.8 % (36.0-48.0); IMMATURE GRANULOCYTES 0.4 % (0-5); LYMPHOCYTES 10.2 % (15-50); MCH 30.9 pg (26.0-34.0); MCHC 32.7 g/dL (31.0-37.0); MCV 94.5 fL (80.0-100.0); MONOCYTES 15.3 % (2-11); PLATELET COUNT 117 10x3/uL (130-400); RDW 13.7 % (11.5-14.5)
[2017-10-07 05:38] LABS: WBC 8.5 10x3/uL (4.8-10.8)
[2017-10-07 05:40] LABS: HEMOGLOBIN 6.8 g/dL (12-16)
[2017-10-07 06:22] LABS: ALBUMIN 2.2 g/dL (3.4-5.0); ANION GAP 10.3 mmol/L (8-16); BILIRUBIN - TOTAL 0.59 mg/dL (0.2-1.3); CALCIUM 8.4 mg/dL (8.5-10.1); CREATININE - SERUM 1.2 mg/dL (0.6-1.3); POTASSIUM - SERUM 4.3 mmol/L (3.5-5.1)
[2017-10-07 08:02] VITALS: BP 135/53
[2017-10-07 13:35] VITALS: BP 114/39
[2017-10-07 16:36] VITALS: BP 114/42
[2017-10-07 20:00] VITALS: BP 130/49
[2017-10-08] VITALS: BP 137/59
[2017-10-08 04:00] VITALS: BP 120/55
[2017-10-08 07:41] LABS: BASOPHILS 0.3 % (0-2); EOSINOPHILS 1.5 % (0-7); IMMATURE GRANULOCYTES 0.5 % (0-5); LYMPHOCYTES 5.8 % (15-50); MCH 30.7 pg (26.0-34.0); MCHC 33.6 g/dL (31.0-37.0); MEAN PLATELET VOLUME 10.2 fL (7.4-10.4); MONOCYTES 13.4 % (2-11); NEUTROPHILS 78.5 % (40-80); PLATELET COUNT 125 10x3/uL (130-400); RDW 15.3 % (11.5-14.5)
[2017-10-08 07:44] LABS: HEMATOCRIT 29.2 % (36.0-48.0); HEMOGLOBIN 9.8 g/dL (12-16); MCV 91.5 fL (80.0-100.0); RBC 3.19 10x6/uL (4.00-5.40)
[2017-10-08 07:59] LABS: ALBUMIN 2.1 g/dL (3.4-5.0); ANION GAP 9.2 mmol/L (8-16); BILIRUBIN - TOTAL 0.83 mg/dL (0.2-1.3); CALCIUM 8.2 mg/dL (8.5-10.1); CARBON DIOXIDE 28.2 mmol/L (21.0-32.0); POTASSIUM - SERUM 4.4 mmol/L (3.5-5.1); PROTEIN - SERUM 5.3 g/dL (6.4-8.2)
[2017-10-08 08:55] VITALS: BP 155/54
[2017-10-08 12:52] VITALS: BP 112/55
[2017-10-08 20:52] VITALS: BP 126/67
[2017-10-09 04:10] VITALS: BP 158/64
[2017-10-09 04:35] LABS: BASOPHILS 0.4 % (0-2); EOSINOPHILS 3.6 % (0-7); HEMATOCRIT 28.2 % (36.0-48.0); HEMOGLOBIN 9.4 g/dL (12-16); IMMATURE GRANULOCYTES 0.5 % (0-5); LYMPHOCYTES 9.3 % (15-50); MCHC 33.3 g/dL (31.0-37.0); MCV 93.1 fL (80.0-100.0); MEAN PLATELET VOLUME 9.9 fL (7.4-10.4); NEUTROPHILS 74.2 % (40-80); PLATELET COUNT 141 10x3/uL (130-400); RBC 3.03 10x6/uL (4.00-5.40); RDW 15.1 % (11.5-14.5); WBC 8.4 10x3/uL (4.8-10.8)
[2017-10-09 05:09] LABS: CARBON DIOXIDE 31.1 mmol/L (21.0-32.0); CREATININE - SERUM 0.9 mg/dL (0.6-1.3); POTASSIUM - SERUM 4.1 mmol/L (3.5-5.1)
[2017-10-09 08:43] VITALS: BP 120/69
[2017-10-09 13:16] VITALS: BP 139/53
[2017-10-09 18:06] VITALS: BP 149/76
== END 2017-10-09 18:09 | DRG 481 ==
LOC: D.ER 07:11 → D.EDHOLD 09:29 → D.MS 09:29
PROVIDERS: Family Medicine; Orthopaedic Surgery
PROC: 0QSB36Z Reposition Right Lower Femur with Intramedullary Internal Fixation Device, Percutaneous Approach (ICD-10-PCS; principal; 2017-10-04)
DX: S72.141A Displaced intertrochanteric fracture of right femur, initial encounter for closed fracture (principal); D62 Acute posthemorrhagic anemia; W10.8XXA Fall (on) (from) other stairs and steps, initial encounter; E03.9 Hypothyroidism, unspecified; E78.5 Hyperlipidemia, unspecified; I10 Essential (primary) hypertension; I25.10 Atherosclerotic heart disease of native coronary artery without angina pectoris; Z95.1 Presence of aortocoronary bypass graft; K21.9 Gastro-esophageal reflux disease without esophagitis; M81.0 Age-related osteoporosis without current pathological fracture

== ENCOUNTER 2017-10-09 16:50 | Inpatient (IN) | payer MEDICARE, BC ==
[~2017-10-09] VITALS: Ht 162.6 cm; Wt 81.6 kg
--- NOTE | ~2017-10-09 | RHP ---
PATIENT: RICK CHAN MEDICAL RECORD: [id number] ACCOUNT: [id number] LOCATION:[facility] : 31 ADMISSION DATE: 10/09/17 REHABILITATION HISTORY AND PHYSICAL EXAMINATION POST ADMISSION PHYSICIAN EXAMINATION DATE OF ADMISSION TO REHAB: 10/09/2017 ADMITTING DIAGNOSES: Right hip fracture, status post total hip arthroplasty. HISTORY OF PRESENT ILLNESS: The patient is an 82-year-old female patient admitted to inpatient rehab with a right comminuted intertrochanteric fracture after a fall. She is status post right intertrochanteric femur fracture, femoral long nailing and cross locking. She was walking on the morning of 10/04/2017, when she fell on her right hip. The patient developed immediate onset of right hip pain and could no longer ambulate. The patient denies any loss of conscious. The patient was brought to the Emergency Room and orthopedic consultation was requested. On exam, she had deformity of her right lower extremity with external rotation and shortening. She has tenderness to palpation to her right groin, buttock and trochanteric bursa. Range of motion reproduce symptoms. X-ray showed an acute displaced comminuted varus angulated intertrochanteric fracture of the proximal right femur. On 10/05/2017, she went to the OR for right intertrochanteric femur fracture, intertrochanteric long nailing and cross locking. Her postop course had been complicated by acute blood loss anemia with H&H of 6.8 and 20.8. She received 2 units packed of red blood cells on 10/07/2017. She has had fever with a T-max of 100, hypoxic with a sat of 89% on room air. Has been on continuous O2 at 1 to 3 liters to keep her O2 sats greater than 90%, improved. She was independent with ADLs and mobility. Currently, she is mod-to-max assist for ADLs and mobility. She has decreased range of motion, increased weakness in her right upper extremity secondary to multiple shoulder surgeries. She has had increased difficulty supporting her weight in her upper extremities while using a walker. She is toe-touch weightbearing on her right leg causing poor balance and increased risk for fall. She wants to be able to return back home with her , hopefully at her prior level of functioning if possible. COMORBIDITIES: In this patient include anemia, coronary artery disease status post coronary artery bypass grafting, hypertension, hypothyroidism, hyperlipidemia, osteoporosis, recent fall, urinary incontinence, weakness, arthritis, cataracts, history of TIA, history of seizure in the past. PAST MEDICAL HISTORY: Significant for TIA, seizures times 1 in the past, dry eye syndrome, cataracts, sinus problems, hypertension, coronary artery disease, syncope, hyperlipidemia. PAST SURGICAL HISTORY: Includes gallbladder surgery, hysterectomy. She has had a bladder suspension. She has had a shoulder scoping and shoulder replacement and two spurs removed from her shoulder in the past. ALLERGIES: SULFA, IODINE, BETADINE, CHLORHEXIDINE, HYDROCODONE, DOXYCYCLINE AND ANY TYPE OF ADHESIVE. CURRENT MEDICATIONS: Include Protonix 40 mg daily, Cozaar 100 mg daily, Zetia 10 mg daily, calcium carbonate 500 mg daily, polyethylene glycol 17 grams in 8 ounce of water daily, vancomycin 1 gram every 12 hours, [place] 7.5 one tab every HISTORY AND PHYSICAL [id number] RICK CHAN 4 hours p.r.n., Zocor 40 mg at bedtime, propranolol 80 mg b.i.d. and melatonin 6 mg at bedtime. HABITS: No current alcohol or tobacco use. FAMILY HISTORY: Noncontributory. SOCIAL HISTORY: The patient hopes to return back home with her and get back to her prior level of functioning. REVIEW OF SYSTEMS: GENERAL: Does complain of weakness and fatigue. HEENT: Denies cold, cough, or congestion. CARDIOVASCULAR: Denies chest pain. PHYSICAL EXAMINATION: VITAL SIGNS: Stable, afebrile. GENERAL: A somewhat obese female in no acute distress, alert upon exam. HEENT: Normocephalic and atraumatic. Mucosa moist. NECK: Supple. No lymphadenopathy. LUNGS: Clear at this time. HEART: Regular rate and rhythm. ABDOMEN: Benign. EXTREMITIES: No clubbing, cyanosis or edema. Postop swelling appears normal. NEUROLOGIC: She does have noted weakness not only in her lower extremities, but also her right upper extremity. LABORATORY DATA: White count is 9.2, H&H of 11 and 33 and platelet count was noted to be 191. Her sodium is 141, potassium 3.8, BUN and creatinine of 20 and 0.9, and blood sugar is noted to be 131. ASSESSMENT: This is an 82-year-old female patient admitted to rehab with a working diagnosis of right hip fracture status post open reduction and internal fixation. The patient has potential to make improvement. We instituted the following multidisciplinary therapies include, but not limited to physical, occupational, respiratory, speech, nutritional services, prosthetics and orthotics. Given her complex medical condition and risk for more complications, rehabilitation services cannot be provided at a low level of care such as a skilled nurse facility. PLAN: 1. Admit to [facility] for intensive inpatient therapy to include the following disciplines: A. Physical therapy to improve gait, all transfer skills and bed mobility to a modified independent level. B. Occupational therapy to a modified independent level. C. Case management to assist with discharge planning and placement options. D. Nutrition to assist with nutritional needs. E. Rehabilitation nursing to assist in monitoring the patient's underlying medical conditions and to assist with any type of bowel or bladder management. 2. The patient's current medication and medical care will be continued. 3. I am going to watch her H&H closely. 4. We will titrate her off her O2, which she was not on prior to her hospitalization. 5. I am going to follow up her in the a.m. HISTORY AND PHYSICAL [id number] RICK CHAN TRANSINT:[id number] Voice Confirmation ID: [id number] DOCUMENT ID: [id number] ANISH notes whether there has been none or any medical/functional change since admission: - No change since prescreen. ANISH attests patient continues to be appropriate for IRF: - Continues to be appropriate. LISA HARRIS MD at 1757 CC: [id number] DICTATION DATE: 10/10/17 1105 SPECIAL EDUCATION SCIENCE TEACHER: 10/10/17 1300 ADM IN [facility] [address] [place] [id number]
[2017-10-09 21:48] VITALS: BP 152/63
[2017-10-10 07:23] LABS: BASOPHILS 0.3 % (0-2); EOSINOPHILS 2.1 % (0-7); HEMATOCRIT 32.8 % (36.0-48.0); HEMOGLOBIN 10.7 g/dL (12-16); IMMATURE GRANULOCYTES 0.5 % (0-5); MCH 30.1 pg (26.0-34.0); MCHC 32.6 g/dL (31.0-37.0); MCV 92.4 fL (80.0-100.0); MEAN PLATELET VOLUME 9.9 fL (7.4-10.4); MONOCYTES 13.4 % (2-11); NEUTROPHILS 77.7 % (40-80); RBC 3.55 10x6/uL (4.00-5.40); RDW 14.6 % (11.5-14.5); WBC 9.2 10x3/uL (4.8-10.8)
[2017-10-10 07:27] LABS: PLATELET COUNT 191 10x3/uL (130-400)
[2017-10-10 07:46] LABS: ANION GAP 12.4 mmol/L (8-16); CALCIUM 8.4 mg/dL (8.5-10.1); CARBON DIOXIDE 27.4 mmol/L (21.0-32.0); CREATININE - SERUM 0.9 mg/dL (0.6-1.3); POTASSIUM - SERUM 3.8 mmol/L (3.5-5.1)
[2017-10-10 08:00] VITALS: BP 163/87
[2017-10-10 13:11] VITALS: Ht 162.6 cm; Wt 81.6 kg
[2017-10-10 18:00] VITALS: BP 179/52
[2017-10-11 06:43] LABS: BASOPHILS 0.2 % (0-2); EOSINOPHILS 1.5 % (0-7); HEMATOCRIT 29.7 % (36.0-48.0); HEMOGLOBIN 9.8 g/dL (12-16); IMMATURE GRANULOCYTES 0.7 % (0-5); LYMPHOCYTES 11.4 % (15-50); MCH 30.5 pg (26.0-34.0); MCV 92.5 fL (80.0-100.0); MEAN PLATELET VOLUME 9.5 fL (7.4-10.4); NEUTROPHILS 77.2 % (40-80); PLATELET COUNT 188 10x3/uL (130-400); RBC 3.21 10x6/uL (4.00-5.40); RDW 14.5 % (11.5-14.5); WBC 8.8 10x3/uL (4.8-10.8)
[2017-10-11 06:57] LABS: ANION GAP 10.2 mmol/L (8-16); CARBON DIOXIDE 28.6 mmol/L (21.0-32.0); CREATININE - SERUM 0.9 mg/dL (0.6-1.3); POTASSIUM - SERUM 3.8 mmol/L (3.5-5.1)
[2017-10-11 08:22] VITALS: BP 151/58
[2017-10-11 18:00] VITALS: BP 150/58
[2017-10-12 08:04] VITALS: BP 158/50
[2017-10-12 18:00] VITALS: BP 135/41
[2017-10-13 06:48] LABS: BASOPHILS 0.2 % (0-2); EOSINOPHILS 3.7 % (0-7); HEMATOCRIT 31.1 % (36.0-48.0); IMMATURE GRANULOCYTES 0.9 % (0-5); MCH 30.5 pg (26.0-34.0); MCHC 32.2 g/dL (31.0-37.0); MEAN PLATELET VOLUME 9.8 fL (7.4-10.4); MONOCYTES 14.9 % (2-11); NEUTROPHILS 73.3 % (40-80); RBC 3.28 10x6/uL (4.00-5.40); RDW 14.7 % (11.5-14.5)
[2017-10-13 06:54] LABS: ANION GAP 8.9 mmol/L (8-16); CALCIUM 8.3 mg/dL (8.5-10.1); CARBON DIOXIDE 26.2 mmol/L (21.0-32.0); CREATININE - SERUM 1.1 mg/dL (0.6-1.3); POTASSIUM - SERUM 4.1 mmol/L (3.5-5.1)
[2017-10-13 07:00] LABS: MCV 94.8 fL (80.0-100.0); PLATELET COUNT 281 10x3/uL (130-400); WBC 12.3 10x3/uL (4.8-10.8)
[2017-10-13 08:13] VITALS: BP 151/52
[2017-10-13 18:00] VITALS: BP 144/64
[2017-10-14 08:00] VITALS: BP 159/51
[2017-10-15 08:00] VITALS: BP 149/60
[2017-10-16 04:38] VITALS: BP 126/77
[2017-10-16 06:16] LABS: BASOPHILS 0.2 % (0-2); EOSINOPHILS 3.1 % (0-7); HEMATOCRIT 28.9 % (36.0-48.0); HEMOGLOBIN 9.3 g/dL (12-16); IMMATURE GRANULOCYTES 1.2 % (0-5); MCH 30.8 pg (26.0-34.0); MCHC 32.2 g/dL (31.0-37.0); MCV 95.7 fL (80.0-100.0); MEAN PLATELET VOLUME 9.8 fL (7.4-10.4); NEUTROPHILS 74.5 % (40-80); PLATELET COUNT 277 10x3/uL (130-400); RBC 3.02 10x6/uL (4.00-5.40); RDW 15.2 % (11.5-14.5); WBC 9.5 10x3/uL (4.8-10.8)
[2017-10-16 06:34] LABS: ANION GAP 11.3 mmol/L (8-16); CARBON DIOXIDE 27.9 mmol/L (21.0-32.0); POTASSIUM - SERUM 4.2 mmol/L (3.5-5.1)
[2017-10-16 08:00] VITALS: BP 142/53
[2017-10-16 20:00] VITALS: BP 130/61
[2017-10-17 08:00] VITALS: BP 105/60
[2017-10-17 19:00] VITALS: BP 143/114
[2017-10-18 06:30] LABS: BASOPHILS 0.2 % (0-2); EOSINOPHILS 2.3 % (0-7); HEMATOCRIT 31.5 % (36.0-48.0); HEMOGLOBIN 9.9 g/dL (12-16); IMMATURE GRANULOCYTES 0.6 % (0-5); MCH 30.3 pg (26.0-34.0); MCHC 31.4 g/dL (31.0-37.0); MCV 96.3 fL (80.0-100.0); MEAN PLATELET VOLUME 9.5 fL (7.4-10.4); MONOCYTES 12.1 % (2-11); NEUTROPHILS 77.8 % (40-80); PLATELET COUNT 328 10x3/uL (130-400); RBC 3.27 10x6/uL (4.00-5.40); RDW 15.4 % (11.5-14.5); WBC 9.4 10x3/uL (4.8-10.8)
[2017-10-18 06:44] LABS: ANION GAP 11.8 mmol/L (8-16); CALCIUM 8.2 mg/dL (8.5-10.1); CARBON DIOXIDE 28.3 mmol/L (21.0-32.0); CREATININE - SERUM 1.1 mg/dL (0.6-1.3); POTASSIUM - SERUM 4.1 mmol/L (3.5-5.1)
[2017-10-18 08:00] VITALS: BP 145/48
[2017-10-18 19:00] VITALS: BP 130/49
[2017-10-19 07:53] VITALS: BP 132/47
[2017-10-19 19:00] VITALS: BP 124/48
[2017-10-20 06:29] LABS: ANION GAP 12.1 mmol/L (8-16); CALCIUM 8.1 mg/dL (8.5-10.1); CARBON DIOXIDE 26.7 mmol/L (21.0-32.0); CREATININE - SERUM 1.1 mg/dL (0.6-1.3)
[2017-10-20 06:32] LABS: BASOPHILS 0.4 % (0-2); EOSINOPHILS 2.6 % (0-7); HEMATOCRIT 30.6 % (36.0-48.0); HEMOGLOBIN 9.5 g/dL (12-16); IMMATURE GRANULOCYTES 0.5 % (0-5); LYMPHOCYTES 8.3 % (15-50); MCH 30.3 pg (26.0-34.0); MCV 97.5 fL (80.0-100.0); MEAN PLATELET VOLUME 9.5 fL (7.4-10.4); MONOCYTES 14.2 % (2-11); PLATELET COUNT 308 10x3/uL (130-400); RBC 3.14 10x6/uL (4.00-5.40); RDW 15.9 % (11.5-14.5); WBC 8.4 10x3/uL (4.8-10.8)
[2017-10-20 06:34] LABS: POTASSIUM - SERUM 4.8 mmol/L (3.5-5.1)
[2017-10-20 07:58] VITALS: BP 143/52
[2017-10-20 18:00] VITALS: BP 148/49
[2017-10-21 10:19] VITALS: BP 130/53
[2017-10-21 19:40] VITALS: BP 134/54
[2017-10-22 09:45] VITALS: BP 146/60
[2017-10-22 19:30] VITALS: BP 137/53
[2017-10-23 05:24] LABS: BASOPHILS 0.5 % (0-2); EOSINOPHILS 2.2 % (0-7); HEMATOCRIT 31.8 % (36.0-48.0); HEMOGLOBIN 10.2 g/dL (12-16); IMMATURE GRANULOCYTES 0.5 % (0-5); LYMPHOCYTES 9.4 % (15-50); MCH 30.8 pg (26.0-34.0); MCHC 32.1 g/dL (31.0-37.0); MCV 96.1 fL (80.0-100.0); MEAN PLATELET VOLUME 9.3 fL (7.4-10.4); MONOCYTES 13.3 % (2-11); NEUTROPHILS 74.1 % (40-80); PLATELET COUNT 300 10x3/uL (130-400); RBC 3.31 10x6/uL (4.00-5.40); RDW 16.1 % (11.5-14.5); WBC 7.7 10x3/uL (4.8-10.8)
[2017-10-23 05:38] LABS: ANION GAP 11.2 mmol/L (8-16); CALCIUM 8.1 mg/dL (8.5-10.1); CARBON DIOXIDE 26.2 mmol/L (21.0-32.0); CREATININE - SERUM 1.1 mg/dL (0.6-1.3); POTASSIUM - SERUM 4.4 mmol/L (3.5-5.1)
[2017-10-23 09:11] VITALS: BP 143/68
[2017-10-23 18:00] VITALS: BP 129/36
[2017-10-24 07:47] VITALS: BP 142/53
[2017-10-24 19:00] VITALS: BP 146/90
[2017-10-25 07:01] LABS: BASOPHILS 0.3 % (0-2); HEMATOCRIT 31.3 % (36.0-48.0); HEMOGLOBIN 10.1 g/dL (12-16); IMMATURE GRANULOCYTES 0.5 % (0-5); LYMPHOCYTES 12.5 % (15-50); MCH 31.3 pg (26.0-34.0); MCHC 32.3 g/dL (31.0-37.0); MCV 96.9 fL (80.0-100.0); MEAN PLATELET VOLUME 9.2 fL (7.4-10.4); MONOCYTES 10.9 % (2-11); NEUTROPHILS 72.8 % (40-80); PLATELET COUNT 269 10x3/uL (130-400); RBC 3.23 10x6/uL (4.00-5.40); RDW 16.2 % (11.5-14.5); WBC 6.3 10x3/uL (4.8-10.8)
[2017-10-25 07:18] LABS: ANION GAP 9.2 mmol/L (8-16); CALCIUM 7.9 mg/dL (8.5-10.1); CARBON DIOXIDE 27.2 mmol/L (21.0-32.0); POTASSIUM - SERUM 4.4 mmol/L (3.5-5.1)
[2017-10-25 07:49] VITALS: BP 148/59
== END 2017-10-25 13:53 | disposition home health service (06) | DRG 560 ==
LOC: D.REHAB 16:50
PROVIDERS: Emergency Medicine
DX: S72.001D Fracture of unspecified part of neck of right femur, subsequent encounter for closed fracture with routine healing (principal); D62 Acute posthemorrhagic anemia; Z47.1 Aftercare following joint replacement surgery; Z96.641 Presence of right artificial hip joint; W19.XXXD Unspecified fall, subsequent encounter; I25.10 Atherosclerotic heart disease of native coronary artery without angina pectoris; Z95.5 Presence of coronary angioplasty implant and graft; I10 Essential (primary) hypertension; E03.9 Hypothyroidism, unspecified; E78.5 Hyperlipidemia, unspecified; M81.0 Age-related osteoporosis without current pathological fracture; R32 Unspecified urinary incontinence; R53.1 Weakness

== ENCOUNTER 2018-05-25 11:37 | Inpatient (IN) | payer MEDICARE, BC ==
[~2018-05-25] VITALS: Ht 162.6 cm; Wt 79.8 kg
--- NOTE | ~2018-05-25 | CN ---
PATIENT NAME:RICK CHAN MEDICAL RECORD: [id number] : 31 LOCATION:. D.2116 ADMIT DATE: 05/25/18 ACCOUNT: [id number] CONSULTING PHYSICIAN: NAVIN CUNHA MD REFERRING PHYSICIAN: LI MONTALVO MD DATE OF CONSULTATION: 05/26/2018 DIAGNOSES: 1. Angina. 2. Syncope. 3. Coronary artery disease. 4. Previous cardiac PTCA stent. 5. Hyperlipidemia. 6. Hypertension. HISTORY OF PRESENT ILLNESS: Mrs. Chan has been having some episodes of chest pain, chest discomfort as of recent along with shortness of breath. However, yesterday she had a witnessed syncopal episode while she was at the [facility]. Following this, she had severe chest discomfort. Her troponin is negative. Her chest discomfort she has been having and had yesterday is just like that prior to her stenting. Her last stent was July of 2016. PHYSICAL EXAMINATION: GENERAL APPEARANCE: Well-nourished, well-developed, appears stated age. Level of distress, comfortable. PSYCHIATRIC: Mental status, alert, normal affect. Orientation, oriented to time, place and person. EYES: Lids and conjunctiva, noninjected. No discharge, no pallor. ENT: Lips, teeth, gums, normal dentition. Oropharynx, no cyanosis, no pallor. NECK: Carotid arteries, bilateral normal upstroke, no bruits, no thrills. JUGULAR VEINS: No jugular venous pressure or distention. CERVICAL LYMPH NODES: Nontender, nonenlarged. THYROID: Not enlarged. Nontender. No nodules. LUNGS: Respiratory effort, unlabored. CHEST: Normal curvature. No thoracic deformity. No chest wall tenderness. Percussion, resonant. Auscultation, clear. No wheezes, no rales, no rhonchi. CARDIOVASCULAR: Precordial exam, nondisplaced. No heaves or pericardial thrills. Rate and rhythm, regular. Heart sounds, normal S1, normal S2. No S3, no gallop, no rub. Systolic murmur, not heard. Diastolic murmur, not heard. EXTREMITIES: No cyanosis, no edema. Peripheral pulses, full and equal in all extremities, except as noted. No bruits appreciated. ABDOMEN: Soft, nondistended. Normal aorta. No bruit. Nontender. No masses. Liver, nontender, no hepatomegaly. Spleen, nontender, no splenomegaly. MUSCULOSKELETAL: No joint tenderness. No joint swelling. No erythema. NEUROLOGICAL: Normal gait, normal strength, normal tone. SKIN: Warm and dry. OVERALL IMPRESSION: Chest pain compatible with angina in a worsening fashion, syncope, most likely his syncope was secondary to dysrhythmia associated with cardiac irritability and ischemia. We will proceed with coronary angiography in the a.m., premedicating for her contrast allergy today. TRANSINT:[id number] Voice Confirmation ID: [id number] DOCUMENT ID: [id number] CONSULT REPORT [id number] RICK CHAN JEFFREY MD CC: [id number] DICTATION DATE: 05/26/18 1001 PRESSURE STEAMER TENDER: 05/26/18 1109 ADM IN [place] [address] [place] [address]
--- NOTE | ~2018-05-25 | HEMODYNAMI ---
PATIENT:RICK CHAN MEDICAL RECORD: [id number] : 31 LOCATION:[facility] D.2116 ADMISSION DATE: 05/26/18 Generatedon:05/27/20189:39 Patient name: RICK CHAN Patient #: [id number] SSN: D OB: 1935 Date of study: 05/27/2018 Page: Of Hemodynamic Procedure Report Patient Data Patient Demographics Procedure consent was obtained First Name: RICK Gender: Female Last Name: ROCIO : 1935 Middle Initial: M Age: 82 year(s) Patient #: [id number] Race: Unknown Additional ID: [id number] Contact details Address: [address] [place] [address] State: [place] City: [facility] Zip code: [address] Past Medical History Allergies Allergen Reaction Date Comments Reported Iodine 08/12/2016 Sulfa drugs 08/12/2016 Betadine 08/12/2016 Other allergy 08/12/2016 Adhesives, Doxycycline, Chlorhexidine, Hydrocodone Other allergy 07/22/2017 norco, adgesive, tape, iodine, chlorahexadine Other allergy 05/27/2018 see chart Admission Admission Data Admission Date: 05/26/2018 Admission Time: 15:29 Room #: D.2116 Height (in.): 63.78 BSA: 1.84 (m2) Height (cm.): 162 BMI: 30.1 (kg/m2) Weight (lbs.): 174.17 Weight (kg.): 79 Lab Results Lab Result Date: 05/27/2018 Lab Result Time: 0:00 Biochemistry Name Units Result Min Max BUN mg/dl 28 --(----)-* 7 18 Creatinine mg/dl 1.2 --(---*)-- 0.6 1.3 CBC Name Units Result Min Max Hemoglobin g/dl 14 --(*---)-- 13.5 17.5 Procedure Procedure Types Cath Procedure Diagnostic Procedure LHC LHC w/Coronaries FFR/IVUS Intra-Coronary IVUS Initial PCI Procedure Coronary Stent Coronary Stent Initial Procedure Description Procedure Date Procedure Date: 05/27/2018 Procedure Start Time: 9:12 Procedure End Time: 9:38 Procedure Staff Name Function Jovany Hickey MD Performing Physician Cailin Pina RT Monitor Iwona Lyon RN Nurse Clarita Ahn RT Scrub Procedure Data Cath Procedure Fluoroscopy Diagnostic fluoroscopy Total fluoroscopy Time: 4.1 time: 4.1 min min Diagnostic fluoroscopy Total fluoroscopy dose: 629 dose: 629 mGy mGy Contrast Material Contrast Material Type Amount (ml) Isovue 300 54 Entry Location Entry Primary Successful Side Size Upsize Upsize Entry Closure Knox ccessful Closure Location (Fr) 1 (Fr) 2 (Fr) Remarks Device Remarks Femoral Right 5 Fr 6 Fr Exoseal artery Short Radial Right 6 Fr Mechanical artery Short Compression Estimated blood loss: 10 ml Diagnostic catheters Device Type Used For End Catheter Placement DIAGNOSTIC Dundee 110cm 5 Procedure Fr catheter ([id number]) MULTIPACK Pigtail 5 Fr Procedure catheter MULTIPACK JL 4.0 5Fr Procedure catheter MULTIPACK 3DRC 5Fr Procedure catheter Procedure Complications No complications Procedure Medications Medication Administration Route Dosage 0.9% NaCl I.V. 100 ml/hr Oxygen etCO2 Nasal cannula 2 l/min Lidocaine 2% added to field 20 Heparin Flush Bag added to field 2 bags (1000units/500ml NS) Radial Cocktail added to field 1 syringe (Verapomil 2mg/Nitro 400mcg/Heparin 1500units) Versed I.V. 2 mg Fentanyl I.V. 50 mcg Fentanyl I.V. 50 mcg Heparin Bolus I.V. 4000 units Plavix P.O. 75 mg Hemodynamics Rest BSA: 1.84 (m2) HGB: 14 (g/dl) O2 Consumption: Estimated: 162.1 (ml/min) O2 Consu mption indexed: Estimated:88.1 (ml/min/m) Heart Rate: 67 (bpm) Snapshots Pre Cath Intra NCS Post Cath Vital Signs Time Heart Resp SPO2 etCO2 NIBP (mmHg) Rhythm Pain Sedation Rate (ipm) (%) (mmHg) Status Level (bpm) 8:57:21 64 17 98 20 171/82(133) NSR 0 (11) 10(A) , No pain 9:01:51 65 15 100 31.1 163/82(131) NSR 0 (11) 10(A) , No pain 9:06:16 66 13 98 23.5 147/81(119) NSR 0 (11) 10(A) , No pain 9:10:34 64 16 98 14.4 137/73(106) NSR 0 (11) 10(A) , No pain 9:14:48 65 16 98 31.8 130/75(104) NSR 0 (11) 10(A) , No pain 9:19:06 68 19 97 31.8 142/71(117) NSR 0 (11) 9(A) , No pain 9:23:24 72 18 98 29.5 136/72(101) NSR 0 (11) 9(A) , No pain 9:27:42 70 17 98 29.5 139/70(98) NSR 0 (11) 9(A) , No pain 9:32:02 70 17 98 30.3 140/72(106) NSR 0 (11) 9(A) , No pain 9:36:20 73 16 96 30.3 153/85(116) NSR 0 (11) 10(A) , No pain Medications Time Medication Route Dose Verified Delivered Reason Note s Effectiveness by by 8:57:15 0.9% NaCl I.V. 100 Jovany Iwona used for ml/hr Edelmira Lyon financial internship 8:57:22 Oxygen etCO2 2 l/min Jovany Iwona used for Nasal Edelmira Lyon procedure cannula RN 8:57:27 Lidocaine 2% added 20ml Jovanyadry Manzo for local to vial Edelmira Hickey MD anesthetic field 8:57:31 Heparin Flush added 2 bags Jovanyadry Manzo used for Bag to Edelmira Hickey MD procedure (1000units/500ml field NS) 8:57:36 Radial Cocktail added 1 Jovany Jovany used for (Verapomil to syringe Edelmira Hickey MD procedure 2mg/Nitro field 400mcg/Heparin 1500units) 9:11:24 Versed I.V. 2 mg Jovany Iwona for sedation Edelmira Lyon RN 9:11:30 Fentanyl I.V. 50 mcg Jovany Iwona for sedation Edelmira Lyon RN 9:17:15 Fentanyl I.V. 50 mcg Jovany Iwona for sedation Edelmira Lyon RN 9:29:22 Heparin Bolus I.V. 4000 Jovany Bustillo for veri fied units Edelmira Lyon anticoagulation with Dr. CHACHO Hickey 9:29:37 Plavix P.O. 75 mg Jovany Bustillo for Edelmira Lyon antiplatelet RN therapy Procedure Log Time Note 8:23:08 Patient Height : 63.78 inches 8:23:15 Patient Weight : 174.17 lbs 8:23:38 Lab Result : Hemoglobin 14 g/dl 8::38 Lab Result : Creatinine 1.2 mg/dl 8::38 Lab Result : BUN 28 mg/dl 8:25:50 Diagnostic Cath status Elective 8:25:52 Iwona Lyon RN sent for patient. Start room use. 8:25:54 Time tracking: Call back (After hours or weekends) 8:26:00 Plan of Care:Hemodynamics will remain stable., Cardiac rhythm will remain stable., Comfort level will be maintained., Respiratory function will remain adequate., Patient/ family verbilizes understanding of procedure., Procedure tolerated without complication., Recovers from procedure without complications.. 8:55:30 Patient received from Med II to CCL 1 Alert and oriented. Tansferred to table in Supine position. 8:55:32 Correct patient and procedure confirmed by team. 8:55:33 Signed procedure consent form obtained from patient. 8:55:34 ECG and BP/O2 sat monitors applied to patient. 8:55:42 Vital chart was started 8:55:43 Baseline sample Acquired. 8:55:44 Baseline sample Acquired. 8:55:50 Rhythm: sinus rhythm 8:55:53 Full Disclosure recording started 8:55:59 H&P Date Dictated: 05/26/2018 Within 30 days and on chart.. 8:56:01 Pre-procedure instructions explained to patient. 8:56:03 Family in patients room. 8:56:05 Patient NPO since Midnight. 8:56:18 Patient allergic to Other allergysee chart 8:56:21 Is the patient allergic to Iodine/contrast media? Yes. 8:56:23 Was the patient premedicated? Yes 8:56:25 Is patient on blood thinner?Yes 8:56:29 ACC The patient was administered the following blood thiners within the last 24 hours: ACCPlavix 8:56:32 Patient diabetic? No. 8:56:37 Snore? Yes 8:56:38 Sleep apnea? No 8:56:39 Deviated septum? No 8:57:15 0.9% NaCl 100 ml/hr I.V. was administered by Iwona Lyon RN; used for procedure; 8:57:22 Oxygen 2 l/min etCO2 Nasal cannula was administered by Iwona Lyon RN; used for procedure; 8:57:27 Lidocaine 2% 20ml vial added to field was administered by Jovany Hickey MD; for local anesthetic; 8:57:31 Heparin Flush Bag (1000units/500ml NS) 2 bags added to field was administered by Jovany Hickey MD; used for procedure; 8:57:36 Radial Cocktail (Verapomil 2mg/Nitro 400mcg/Heparin 1500units) 1 syringe added to field was administered by Jovany Hickey MD; used for procedure; 9:10:50 Patient pain scale 0/10 .. 9:10:57 IV patent on arrival in left forearm with 0.9% NaCl at [facility]. 9:11:05 Lab results completed and on chart. 9:11:10 Right Radial & Right Groin area was prepped with chlora-prep and draped in sterile fashion 9:11:12 Alarms reviewed by R. N. 9:11:12 Sharps counted by scrub and verified by R.N. 9:11:15 Physician arrived 9:11:16 --------ALL STOP TIME OUT------ 9:11:17 Final Timeout: patient, procedure, and site verified with staff and physician. All members of the team are in agreement. 9:11:19 Right Radial & Right Groin site verified by team. 9:11:24 Versed 2 mg I.V. was administered by Iwona Lyon RN; for sedation; 9:11:24 Maximum allowable Isovue 300 dose 300ml. Physician notified. (300ml for normal creatinines. For patients with creatinine of 1.7 or higher multiply weight(kg) x 5 divided by creatinine.) 9:11:29 Fire Safety Assessment: A--An alcohol-based skin anteseptic being used preoperatively., C--Open oxygen or nitrous oxide is being used., D--An ESU, laser, or fiber-optic light is being used. 9:11:30 Fentanyl 50 mcg I.V. was administered by Iwona Lyon RN; for sedation; 9:11:35 Physical assessment completed. ASA score P 2 - A patient with mild systemic disease as per Jovany Hickey MD. 9:11:40 Sedation plan: IV Moderate Sedation Medication:Versed, Fentanyl 9:11:46 Use device set Radial Dx or PCI 9:11:49 Procedure started. 9:12:50 Local anesthetic to right radial artery with Lidocaine 2% by Jovany Hickey MD.INITIAL ACCESS ONLY 9:13:09 ACIST Syringe (35584) opened to sterile field. 9:13:11 Medline Cath Pack ([id number]) opened to sterile field. 9:13:12 Bag Decanter (2002S) opened to sterile field. 9:13:13 A 6 Fr Short sheath was inserted into the Right Radial artery 9:13:13 DIAGNOSTIC WIRE .035 260cm J wire (974366) opened to sterile field. 9:13:14 ACIST Hand Control (15074) opened to sterile field. 9:13:14 ACIST Manifold (40051) opened to sterile field. 9:13:16 Tegaderm 4 x 4 (1626W) opened to sterile field. 9:13:17 MBrace Wrist Support ([id number]) opened to sterile field. 9:13:20 SHEATH 6FR Slender (04-5891) opened to sterile field. 9:17:15 Fentanyl 50 mcg I.V. was administered by Iwona Lyon RN; for sedation; 9:18:06 A 5 Fr sheath was inserted into the Right Femoral artery 9:18:23 A DIAGNOSTIC Dundee 110cm 5 Fr catheter (619273) was advanced over the wire and used for Procedure. 9:20:24 unable to pass the catheter through radial artery 9:20:49 SHEATH 5FR Goodwell (ZPM386) opened to sterile field. 9:20:49 DIAGNOSTIC Multipack 5Fr catheter set (OK8262) opened to sterile field. 9:21:02 Use device set Femoral Dx 9:21:14 A MULTIPACK Pigtail 5 Fr catheter was advanced over the wire and used for Procedure. 9:21:44 EF : 60 % 9:21:46 Catheter removed. 9:21:53 A MULTIPACK JL 4.0 5Fr catheter was advanced over the wire and used for Procedure. 9:22:01 LCA angiography performed. 9::43 Catheter removed. 9:24:27 A MULTIPACK 3DRC 5Fr catheter was advanced over the wire and used for Procedure. 9:24:42 RCA angiography performed. 9::47 Catheter removed. 9:26:04 SHEATH 6FR Goodwell (UWK839) opened to sterile field. 9:26:04 CHOICE PT Extra Support 182cm wire ([id number]) opened to sterile field. 9:26:05 INFLATOR Merit BasixCompak (NU9113) opened to sterile field. 9:26:06 GUIDE 6FR HS I catheter (LA6HSI) opened to sterile field. 9:26:11 Proceeding to intervention. 9:26:28 Sheath upsized to a 6 Fr Short. 9:26:41 6 Fr HS1 guide catheter was inserted over the wire 9::47 choice pt wire advanced. 9:27:10 [place] IVUS Catheter (81974Z) opened to sterile field. 9:27:11 SHEATH 5FR Goodwell (ZQE369) opened to sterile field. 9:27:14 IVUS catheter advanced over wire. 9:29:09 IVUS catheter removed over wire. 9:29:22 Heparin Bolus 4000 units I.V. was administered by Iwona Lyon RN; for anticoagulation; verified with Dr. Hickey 9:29:37 Plavix 75 mg P.O. was administered by Iwona Lyon RN; for antiplatelet therapy; 9:30:22 Inflate balloon Inflation number: 1 A EUPHORA 3.5 x 30 Balloon ([id number]) was prepped and advanced across the Mid RCA, then inflated to 17 MAUREEN for 0:05 (min:sec). 9:30:40 Inflation number: 2 The EUPHORA 3.5 x 30 Balloon ([id number]) was reinflated across the Mid RCA, to 15 MAUREEN for 0:05 (min:sec). 9:31:04 Balloon removed over the wire. 9:32:35 Place stent Inflation Number: 3 A INTEGRITY RX 3.5 x 12 stent ([id number]) was prepped and advanced across the Mid RCA. The stent was deployed at 23 MAUREEN for 0:13 (min:sec). 9:32:42 TR BAND Standard ([id number]) opened to sterile field. 9:33:00 EXOSEAL 6Fr (EX600) opened to sterile field. 9:33:08 Wire removed. 9:33:09 Guide catheter removed. 9:33:59 Sheath removed intact; hemostasis achieved with Exoseal to the Right Femoral artery. 9:34:22 Sheath removed intact; hemostasis achieved with Mechanical Compression to the Right Radial artery. 9:35:55 Procedure ended.(Physican Out) 9:36:08 Fluoroscopy time 04.10 minutes. 9:36:14 Flurop Dose total: 629 9:36:14 Fluoroscopy dose: 629 mGy 9:36:19 Contrast amount:Isovue 300 54ml. 9:36:21 Sharps counted by scrub and verified by R.N. 9:36:24 TR band inflated with 10cc of air. 9:36:26 Insertion/operative site no bleeding no hematoma. 9:36:31 Post-op/insertion site Right Femoral artery dressed using a 4 x 4 and Tegaderm. 9:36:35 Post right femoral artery:stable 9:36:41 Post right radial artery:stable 9:36:48 Post-procedure physical assessment completed. ASA score P 2 - A patient with mild systemic disease as per Jovany Hickey MD. 9:36:53 Post procedure rhythm: sinus rhythm 9:36:57 Estimated blood loss: 10 ml 9:36:59 Post procedure instruction explained to patient.Patient verbalizes understanding. 9:37:25 Procedure type changed to Cath procedure, Diagnostic procedure, LHC, LHC w/Coronaries, FFR/IVUS, Intra-Coronary IVUS Initial, PCI procedure, Coronary Stent, Coronary Stent Initial 9:37:27 Procedure and supply charges have been captured, reviewed, submitted and are correct. 9:37:56 Procedure Complication : No complications 9:37:59 Vital chart was stopped 9:38:00 See physician's report for complete and final results. 9:38:01 Report given to Pre/Post Procedure Room. 9:38:05 Patient transfered to Pre/Post Procedure Room with Stretcher. 9:38:08 Procedure ended. 9:38:08 Full Disclosure recording stopped 9:38:11 End room use (Document Last) 9:38:45 ACC-PCI Only Patient was given prescriptions, or instructed by Jovany Hickey MD to start/continue the following medications upon discharge: Plavix Intervention Summary Intervention Notes Time ActionType Lesion and Equipment Action# Pressure Duration Attributes Used 9:30:22 Inflate Mid RCA EUPHORA 3.5 1 17 00:05 balloon x 30 Balloon ([id number]) 9:30:40 Reinflate Mid RCA EUPHORA 3.5 2 15 00:05 balloon x 30 Balloon ([id number]) 9:32:35 Place stent Mid RCA INTEGRITY RX 3 23 00:13 3.5 x 12 stent ([id number]) Device Usage Item Name Manufacture Quantity Catalog Number Hospital Part Current Mini mal Lot# / Charge Number Stock Stock Serial# Code ACIST Acist 1 85582 966635 977175 937948 20 Syringe Medical (84619) Systems Inc Medline Cath Medline 1 [id number] 068307 30808 661307 5 Pack ([id number]) Bag Decanter Microtek 1 2001S 220071 67085 042585 5 () Medical Inc. DIAGNOSTIC [facility] [place] 1 875230 044043 161452 332635 30 WIRE .035 260cm J wire (712756) ACIST Hand Acist 1 78773 964146 084879 606400 5 Control Medical (49836) Systems Inc ACIST Acist 1 44159 995870 841765 222195 5 Manifold Medical (86215) Systems Inc Tegaderm 4 x 3M 1 1626W 052293 095395 214138 5 4 (1626W) MBrace Wrist Advanced 1 140-0250-00 344469 49116 843909 5 Support Vascular (397761954) Dynamics SHEATH 6FR Terumo 1 [id number] 133021 991516 893448 5 Slender (80-1060) DIAGNOSTIC Terumo 1 40-5013 311985 759815 199629 5 Dundee 110cm 5 Fr catheter (328913) SHEATH 5FR Terumo 2 EJC295 377909 488156 387601 5 Goodwell (QPB965) DIAGNOSTIC Cardinal 1 DD5325 841836 75192 267056 30 Multipack Health 5Fr catheter set (IJ4579) MULTIPACK Cardinal 1 259327 5 Pigtail 5 Fr Health catheter MULTIPACK JL Cardinal 1 437476 5 4.0 5Fr Health catheter MULTIPACK Cardinal 1 650998 5 3DRC 5Fr Health catheter SHEATH 6FR Terumo 1 HQR038 950665 076956 881128 40 Goodwell (YXI267) CHOICE PT [place] 1 [id number] 525412 730445 988825 5 Extra Scientific Support 182cm wire ([id number]) INFLATOR Merit 1 IF1099 680943 589866 901249 15 [facility] Medical BasixCompak (FT7865) GUIDE 6FR HS Medtronic 1 LA6HSI 744377 39761 618734 1 I catheter (LA6HSI) [place] 1 84280P 925742 904532 207754 8 [place] IVUS Catheter (59203G) EUPHORA 3.5 Medtronic 1 [id number] 077608 198937 840014 5 [id number] x 30 Balloon (GRC1976I) INTEGRITY RX Medtronic 1 [id number] 223621 989369 346943 5 [id number] 3.5 x 12 stent ([id number]) TR BAND Terumo 1 OEE16-XUX 899120 266234 554911 40 Standard (YRB82MCR) EXOSEAL 6Fr Cardinal 1 EX600 723399 391310 576434 10 (EX600) Health Signature Audit [place] Stage Time Signature Unsigned Intra-Procedure 05/27/2018 Cailin Pina 9:39:07 AM RT(R) Signatures Monitor : Cailin Pina Signature : RT Date : Time : [facility] [address] [place] [address]
--- NOTE | ~2018-05-25 | OP ---
PATIENT NAME: RICK CHAN MEDICAL RECORD: [id number] :31 LOCATION:D.M2 D.2116 ADMISSION DATE:05/26/18 SURGEON: NAVIN CUNHA MD DATE OF OPERATION: 05/27/2018 PROCEDURES: 1. PTCA and stent, RCA. 2. Left heart catheterization. 3. Selective coronary angiography. 4. Left ventriculogram. 5. Intravascular ultrasound. INDICATION: Angina and coronary artery disease. PROCEDURE IN DETAIL: After informed consent was obtained with detailed description of risks and benefits as well as alternative therapies, the patient elected to proceed with angiogram and angioplasty. The right femoral area was prepped and draped in normal sterile fashion. The right femoral artery was cannulated via modified Seldinger technique with placement of 6-Citizen Of [place] sheath. All catheters were exchanged through the sheath. FINDINGS: Left ventriculogram performed in standard 30-degree LI view reveals good cardiac wall motion throughout all segments. Overall ejection fraction is estimated at 60%. SELECTIVE CORONARY ANGIOGRAPHY: 1. Left main is with no significant angiographic disease. 2. Left anterior descending has previously placed stents. These are widely patent with no significant restenosis. No disease elsewise of the LAD or its branches. 3. Left circumflex has moderate irregularities, but no flow-limiting stenosis. 4. Right coronary has previously placed stent. Intravascular ultrasound reveals there is greater than 80% in-stent restenosis in the proximal 3-vessel runoff. PTCA AND STENT OF THE RCA: Stent used was 3.5 x 12-mm Integrity. Result was 0% residual stenosis. OVERALL IMPRESSION: Successful PTCA and stent of the RCA, going from 80% initial stenosis to 0% residual. TRANSINT:[id number] Voice Confirmation ID: [id number] DOCUMENT ID: [id number] NAVIN CUNHA MD CC: [id number] DICTATION DATE: 05/27/18 0939 POLICY LOAN CALCULATOR: 05/27/18 1214 ADM IN [place] [address] [place] [address]
--- NOTE | ~2018-05-25 | EC ---
PATIENT:RICK CHAN DATE OF SERVICE: 05/25/18 SEX: F MEDICAL RECORD: [id number] DATE OF : 31 LOCATION:D.M2 D.211 AGE OF PATIENT: 82 ADMISSION DATE: 05/25/18 REFERRING PHYSICIAN: INTERPRETING PHYSICIAN: NAVIN HICKEY MD ECHOCARDIOGRAM REPORT ECHO CHARGES 4 ECHO COMPLETE Date: 05/26/18 CLINICAL DIAGNOSIS: SYNCOPE ECHOCARDIOGRAPHIC MEASUREMENTS (adult normal given) AC root (d.<3.7cm) 3.3 cm LV Septum d (<1.2 cm> 1.7 cm Valve Excursion 1.2 cm LV Septum (systole) 2.0 cm Left Atria (s.<4.0cm> 3.5 cm LVPW d(<1.2cm) 1.6 cm RV (d.<2.3cm) 3.6 cm LVPW (sytole) 2.0 cm LV diastole(<5.6CM) 4.6 cm MV E-F(>70mm/sec) cm LV systole 2.9 cm LVOT Diameter 1.3 cm MV exc.(>10mm) 1.6 cm Est.ejection fraction (50-75%) % DOPPLER: LVIT cm/sec A 96.0 cm/sec E 62.0 cm/sec LA cm/sec RVSP 27 mmHg LVOT 107 cm/sec AOP1/2T m/s Asc. Ao 130 cm/sec RVOT cm/sec RA cm/sec PA cm/sec AV Gradient Peak 6.77 mmHg AV Mean 3.84 mmHg AV Area 1.2 cm MV Gradient Peak 5.20 mmHg MV Mean 1.45 mmHg MV Area cm COMMENTS: Java Sdet: Ryan HERNANDEZ Core Worker: 1 Dr. Hickey TAPE# PACS Pericardial Effusion N DATE OF SERVICE: 05/26/2018 FINDINGS: 1. Left ventricular chamber size is within normal limits. Left ventricular systolic function is normal. Overall ejection fraction estimated at 60%. 2. Left atrium, right atrium, and right ventricle chamber sizes are within normal limits. 3. Valvular structures have normal structure and motion. 4. Doppler interrogation reveals mild aortic insufficiency, mild tricuspid regurgitation, no other valvular insufficiency or stenosis. ECHOCARDIOGRAM REPORT [id number] RICK CHAN 5. No evidence of pericardial effusion or left ventricular thrombus. TRANSINT:[id number] Voice Confirmation ID: [id number] DOCUMENT ID: [id number] NAVIN HICKEY MD CC: [id number] DICTATION DATE: 05/26/18 1241 CONTRACT SHELTERED WORKSHOP SUPERVISOR: 05/26/18 1409 ADM IN [place] [address] [place] [id number]
[2018-05-25 13:00] LABS: HEMOGLOBIN 13.4 g/dL (12-16); LYMPHOCYTES 11.3 % (15-50); MCH 31.2 pg (26.0-34.0); MCHC 33.5 g/dL (31.0-37.0); MEAN PLATELET VOLUME 9.5 fL (7.4-10.4); NEUTROPHILS 76.9 % (40-80); RDW 13.1 % (11.5-14.5); WBC 6.6 10x3/uL (4.8-10.8)
[2018-05-25 13:04] LABS: PLATELET COUNT 149 10x3/uL (130-400)
[2018-05-25 13:07] LABS: ALBUMIN 3.8 g/dL (3.4-5.0); ALKALINE PHOSPHATASE 116 U/L (46-116); ALT (SGPT) 17 U/L (10-68); BILIRUBIN - TOTAL 0.76 mg/dL (0.2-1.3); CALC OSMOLALITY 287 mosm/kg (275-300); CALCIUM 9.5 mg/dL (8.5-10.1); CARBON DIOXIDE 30.8 mmol/L (21.0-32.0); CHLORIDE - SERUM 104 mmol/L (98-107); CREATININE - SERUM 1.2 mg/dL (0.6-1.3); GLUCOSE 95 mg/dL (74-106); POTASSIUM - SERUM 4.1 mmol/L (3.5-5.1); PROTEIN - SERUM 7.2 g/dL (6.4-8.2); SODIUM 142 mmol/L (136-145); UREA NITROGEN 27 mg/dL (7-18); eGFR NON AFRICAN AMERICAN 45 mL/min (90-120)
[2018-05-25 13:16] LABS: CKMB 0.7 U/L (0.0-3.6); CREATINE KINASE 42 UL (21-215); MAGNESIUM - SERUM 2.6 mg/dL (1.8-2.4)
[2018-05-25 13:17] LABS: TROPONIN-I < 0.017 ng/mL (0.000-0.060)
[2018-05-25 14:25] VITALS: BP 164/71
[2018-05-25 14:38] LABS: APTT 21.6 SECONDS (22.8-39.4)
[2018-05-25 14:39] LABS: INR 1.08 (0.85-1.17); PROTIME 13.5 SECONDS (11.6-15.0)
[2018-05-25] MEDS ORDERED: BUMEX2 MG PO (15:23)
[2018-05-25] MEDS ORDERED: TORSEMIDE20 MG PO (15:25)
[2018-05-25] MEDS ORDERED: K-TAB10 MEQ (15:28)
[2018-05-25] MEDS ORDERED: XALATAN 0.0052.5 ML EACH EYE (15:29)
[2018-05-25] MEDS ORDERED: TYLENOL W/CODEI1 TAB PO (15:29)
[2018-05-25] MEDS ORDERED: BAYER CHEWABLE81 MG PO (15:30)
[2018-05-25 16:45] VITALS: BP 150/70; Ht 162.6 cm; Wt 79.8 kg
[2018-05-25 17:36] VITALS: BP 138/64
--- NOTE | 2018-05-25 20:35 | NUR ---
RESUMING PATIENT CARE. PATIENT ALERT AND ORIENTED,RESTING COMFORTABLY IN BED. RESPIRATIONS ARE EVEN AND UNLABORED. NO S/S OF DISTRESS. NO C/O PAIN. DENIES NEEDS AT THIS TIME. CALL LIGHT WITHIN REACH. WILL CPOC.
[2018-05-25 20:56] VITALS: BP 119/57
--- NOTE | 2018-05-25 23:50 | NUR ---
PATIENT RESTING COMFORTABLY IN BED. RESPIRATIONS ARE EVEN AND UNLABORED. NO S/S OF DISTRESS. NO C/O PAIN. ALL NEEDS MET AT THIS TIME. CALLLIGHT WITHIN REACH. WILL CPOC.
[2018-05-26] VITALS (8 sets, daily range): BP systolic 46–190; BP diastolic 44–73
[2018-05-26 02:45] LABS: BASOPHILS 0.5 % (0-2); EOSINOPHILS 4.5 % (0-7); HEMATOCRIT 37.2 % (36.0-48.0); HEMOGLOBIN 11.9 g/dL (12-16); IMMATURE GRANULOCYTES 0.3 % (0-5); MCH 30.3 pg (26.0-34.0); MCV 94.7 fL (80.0-100.0); MEAN PLATELET VOLUME 9.6 fL (7.4-10.4); MONOCYTES 12.3 % (2-11); NEUTROPHILS 63.4 % (40-80); RBC 3.93 10x6/uL (4.00-5.40); RDW 13.7 % (11.5-14.5)
[2018-05-26 02:50] LABS: PLATELET COUNT 204 10x3/uL (130-400)
[2018-05-26 02:56] LABS: ANION GAP 9.3 mmol/L (8-16); CARBON DIOXIDE 29.7 mmol/L (21.0-32.0); CREATININE - SERUM 1.2 mg/dL (0.6-1.3); MAGNESIUM - SERUM 2.5 mg/dL (1.8-2.4)
--- NOTE | 2018-05-26 09:14 | NUR ---
IV RESTARTED TO LEFT FA WITH 22 GAUGE CATH X 1 STICK AND FLUSHED WITH NS. LINE IS PATENT.
--- NOTE | 2018-05-26 10:30 | NUR ---
URINE SPECIMEN COLLECTED AND TAKEN TO LAB. WILL MONITOR.
--- NOTE | 2018-05-26 10:43 | NUR ---
CONSENTS SIGNED FOR [facility].
[2018-05-26 11:15] LABS: APPEARANCE CLEAR (CLEAR); BILIRUBIN NEGATIVE (NEGATIVE); COLOR YELLOW (YELLOW); GLUCOSE NEGATIVE (NEGATIVE); KETONE NEGATIVE (NEGATIVE); NITRITE NEGATIVE (NEGATIVE); PROTEIN NEGATIVE (NEGATIVE); UROBILINOGEN NORMAL (NORMAL)
--- NOTE | 2018-05-26 11:31 | NUR ---
ORTHOSTATIC B/P: LYING 140/62 68, SITTING 130/65 74, STANDING 109/73 75.
--- NOTE | 2018-05-26 15:34 | NUR ---
BILAT SCDS APPLIED ORDERED.
--- NOTE | 2018-05-26 20:51 | NUR ---
REPORT RECIEVED AND INTIAL ROUNDS COMPLETED. SR PER TELEMETRY. NONLABORED RESPIRATIONS ON ROOM AIR. DENIES PAIN OR DISCOMFORT. INSTRUCT ON NPO AFTER MIDNIGHT FOR SCHEDULED HEART CATH IN AM. PATENT IV TO LFA. PT HAS SCD'S IN PLACE, BUT REQUESTS TO TAKE THEM OFF SINCE SHE RECIEVED A DIURETIC AND IS UP AND DOWN TO BATHROOM FREQUENTLY. SCD'S OFF AT THIS TIME. MONITOR AND CPOC.
--- NOTE | 2018-05-26 21:56 | NUR ---
BEDTIME MEDS GIVEN. NO EYE DROPS AVAILABLE. PT WATCHING BASKETBALL ON TV. NO OTHER NEEDS AT THIS TIME. MONITOR AND CPOC. CALL LIGHT IN REACH.
[2018-05-27 00:01] VITALS: BP 128/70
--- NOTE | 2018-05-27 02:10 | NUR ---
RESTING IN BED WITH NO DISTRESS. RESPS EVEN/NONLABORED. NPO FOR AM HEART CATH. MONITOR AND CPOC. CALL LIGHT IN REACH.
[2018-05-27 04:00] VITALS: BP 151/63
[2018-05-27 05:25] LABS: BASOPHILS 0.1 % (0-2); EOSINOPHILS 0.1 % (0-7); HEMATOCRIT 42.7 % (36.0-48.0); IMMATURE GRANULOCYTES 0.4 % (0-5); LYMPHOCYTES 9.9 % (15-50); MCH 31.1 pg (26.0-34.0); MCHC 32.8 g/dL (31.0-37.0); MCV 94.9 fL (80.0-100.0); MEAN PLATELET VOLUME 9.6 fL (7.4-10.4); MONOCYTES 10.2 % (2-11); NEUTROPHILS 79.3 % (40-80); PLATELET COUNT 236 10x3/uL (130-400); RDW 13.9 % (11.5-14.5)
[2018-05-27 05:32] LABS: WBC 11.9 10x3/uL (4.8-10.8)
[2018-05-27 05:51] LABS: ANION GAP 13.4 mmol/L (8-16); CALCIUM 9.4 mg/dL (8.5-10.1); CARBON DIOXIDE 28.4 mmol/L (21.0-32.0); CREATININE - SERUM 1.2 mg/dL (0.6-1.3); MAGNESIUM - SERUM 2.3 mg/dL (1.8-2.4); POTASSIUM - SERUM 3.8 mmol/L (3.5-5.1)
--- NOTE | 2018-05-27 08:48 | NUR ---
PRE-OPS GIVEN. TO SMALL ANIMAL VETERINARIAN BY BED.
--- NOTE | 2018-05-27 10:00 | NUR ---
BACK FROM DRAPERY ESTIMATOR. VS WNL. RIGHT GROIN STABLE WITHOUT BLEEDING OR HEMETOMANOTED. TR BAND INTACT. WILL CONT. PLAN OF CARE.
[2018-05-27] MEDS ORDERED: PLAVIX75 MG PO (11:09)
[2018-05-27 11:11] VITALS: BP 140/60
--- NOTE | 2018-05-27 14:12 | NUR ---
BED REST UP. GROIN STABLE WITH SM BRUISING NOTED. TR BAND STILL ON DUE TO BLEEDING NOTED TO SITE. WILL MONITOR.
--- NOTE | 2018-05-27 14:39 | NUR ---
TR BAND REMAINS ON. STILL BLEEDING TO SITE.
--- NOTE | 2018-05-27 15:22 | NUR ---
TR BAND DCD WITHOUT BLEEDING OR HEMETOME NOTED.
--- NOTE | 2018-05-27 15:42 | NUR ---
IV AND TELEMETRY DCD. DC PLANS GIVEN. UNDERSTANDING VOICED. ESCORTED TO CAR BY W/C.
--- NOTE | 2018-05-28 09:06 | MORECARE ---
CASE MANAGEMENT DISCHARGE SUMMARY PATIENT: RICK CHAN UNIT: [id number] ADM DATE: 05/26/18 AGE: 82 : 31 SEX: F ROOM/BED: D.2116 AUTHOR: ANUJ WELCH PHYSICIAN: REFERRING PHYSICIAN: LI MONTALVO MD DATE OF SERVICE: 05/28/18 Discharge Plan Patient Name: [facility]ICK CHAN [facility] [facility] 1935 Planned Disposition: Home Anticipated Discharge Date: 05/27/18 Discharge Date: 05/27/2018 Expected LOS: 1 Initial Reviewer: [id number] Initial Review Date: 05/28/2018 Generated: 05/28/18 10:06 am Patient Name: RICK CHAN Page [id number] at 0906 All edits/amendments must be made on the electronic document DICTATION DATE: 05/28/18905 [employer] REPAIRER: [email or web address] 05/28/18905 RPT#: [id number] DC DATE:05/27/18 STATUS: DIS IN [facility] [address] [place] [address] END OF REPORT
== END 2018-05-27 15:45 | disposition home or self-care (01) | DRG 249 ==
LOC: D.ER 11:37 → D.M2 13:57 → OBSVTIME 13:57 → D.M2 05-26 15:29
PROVIDERS: Family Medicine; Internal Medicine Interventional Cardiology; ADMIT Internal Medicine Nephrology; ATTEND Internal Medicine Nephrology
PROC: 4A023N7 Measurement of Cardiac Sampling and Pressure, Left Heart, Percutaneous Approach (ICD-10-PCS; 2018-05-27)
PROC: B2111ZZ Fluoroscopy of Multiple Coronary Arteries using Low Osmolar Contrast (ICD-10-PCS; 2018-05-27)
PROC: B2151ZZ Fluoroscopy of Left Heart using Low Osmolar Contrast (ICD-10-PCS; 2018-05-27)
PROC: 02703DZ Dilation of Coronary Artery, One Artery with Intraluminal Device, Percutaneous Approach (ICD-10-PCS; principal; 2018-05-27 08:26)
PROC: B240ZZ3 Ultrasonography of Single Coronary Artery, Intravascular (ICD-10-PCS; 2018-05-27 08:26)
DX: I25.119 Atherosclerotic heart disease of native coronary artery with unspecified angina pectoris (principal); T82.855A Stenosis of coronary artery stent, initial encounter; R55 Syncope and collapse; I99.8 Other disorder of circulatory system; Y83.8 Other surgical procedures as the cause of abnormal reaction of the patient, or of later complication, without mention of misadventure at the time of the procedure; I10 Essential (primary) hypertension; E78.5 Hyperlipidemia, unspecified; Z86.73 Personal history of transient ischemic attack (TIA), and cerebral infarction without residual deficits; M19.90 Unspecified osteoarthritis, unspecified site; M54.9 Dorsalgia, unspecified; G89.29 Other chronic pain

== ENCOUNTER 2018-06-01 18:38 | Emergency (ER) | payer MEDICARE, BC ==
[~2018-06-01] VITALS: Ht 162.6 cm; Wt 81.8 kg
[~2018-06-01 18:38] MED LIST changes: +BUMEX2 MG PO; +K-TAB10 MEQ; +TORSEMIDE20 MG PO; +TYLENOL W/CODEI1 TAB PO; +XALATAN 0.0052.5 ML EACH EYE
[2018-06-01 18:44] VITALS: Ht 162.6 cm; Wt 81.8 kg
[2018-06-01 19:29] LABS: BASOPHILS 0.4 % (0-2); EOSINOPHILS 3.5 % (0-7); HEMATOCRIT 37.8 % (36.0-48.0); HEMOGLOBIN 12.4 g/dL (12-16); IMMATURE GRANULOCYTES 0.5 % (0-5); LYMPHOCYTES 14.6 % (15-50); MCH 30.8 pg (26.0-34.0); MCHC 32.8 g/dL (31.0-37.0); MEAN PLATELET VOLUME 9.6 fL (7.4-10.4); MONOCYTES 12.1 % (2-11); NEUTROPHILS 68.9 % (40-80); PLATELET COUNT 199 10x3/uL (130-400); RBC 4.02 10x6/uL (4.00-5.40); RDW 13.9 % (11.5-14.5); WBC 7.4 10x3/uL (4.8-10.8)
[2018-06-01 19:39] LABS: APTT 21.5 SECONDS (22.8-39.4); INR 1.07 (0.85-1.17); PROTIME 13.4 SECONDS (11.6-15.0)
[2018-06-01 19:53] LABS: ALBUMIN 3.4 g/dL (3.4-5.0); ALKALINE PHOSPHATASE 102 U/L (46-116); ALT (SGPT) 18 U/L (10-68); BILIRUBIN - TOTAL 0.76 mg/dL (0.2-1.3); CALC OSMOLALITY 285 mosm/kg (275-300); CALCIUM 8.7 mg/dL (8.5-10.1); CHLORIDE - SERUM 107 mmol/L (98-107); GLUCOSE 138 mg/dL (74-106); POTASSIUM - SERUM 4.5 mmol/L (3.5-5.1); PROTEIN - SERUM 6.3 g/dL (6.4-8.2); SODIUM 141 mmol/L (136-145); UREA NITROGEN 22 mg/dL (7-18); eGFR NON AFRICAN AMERICAN 56 mL/min (90-120)
[2018-06-01 20:03] LABS: CKMB 0.6 U/L (0.0-3.6); CREATINE KINASE 46 UL (21-215); MAGNESIUM - SERUM 2.3 mg/dL (1.8-2.4)
[2018-06-01 20:04] LABS: TROPONIN-I < 0.017 ng/mL (0.000-0.060)
[2018-06-01 22:15] VITALS: BP 152/89
== END 2018-06-01 22:15 | disposition home or self-care (01) ==
LOC: D.ER 18:38
PROVIDERS: Family Medicine
DX: R55 Syncope and collapse (principal)

== ENCOUNTER 2018-10-15 08:00 | Outpatient (CLI) | payer MEDICARE, BC ==
[2018-06-01 18:44] VITALS: BMI 30.9
== END 2018-10-15 23:59 | disposition home or self-care (01) ==
LOC: D.MAMMO 08:00
PROVIDERS: ATTEND Family Medicine
DX: Z12.31 Encounter for screening mammogram for malignant neoplasm of breast (principal)